=== PATIENT | male | born 1990 | race Caucasian/White ===

== ENCOUNTER 2016-04-10 10:01 | Inpatient (IN) | payer BC ==
[2016-04-10] MEDS ORDERED: ONDANSETRON 4 MG/2 ML VIAL IVP STA (10:24)
[2016-04-10] MEDS ORDERED: SODIUM CHLORIDE 0.9% 1,000 ML IV STA (10:24)
--- NOTE | 2016-04-10 10:45 | ED ---
Nausea/Vomiting/Diarrhea HPI - General Chief complaint: Nausea/Vomiting/Diarrhea Stated complaint: MUSCLE CRAMPS - VOMITING Time Seen by Provider: 04/10/16 10:24 Source: patient, family, RN notes reviewed Mode of arrival: wheelchair Limitations: no limitations - History of Present Illness Initial comments: 25-year-old male presents emergency Department chief complaint nausea vomiting muscle cramps. Patient states started last night and which she started getting abdominal pain and then he states that he started vomiting. Patient states that he has a colostomy secondary to ulcerative colitis. Patient states his GI doctor is Dr. Maynard and has a surgeon out of [facility]. Patient states he is supposed to go for [facility]. Patient states that he's been going there and they found out he had histoplasmosis and was treated for this. Patient states that he is having straight water in his colostomy bag and there is some blood-tinged areas. Patient denies fever, chills. Patient denies any difficulty urinating, dysuria or hematuria. Denies any back pain. Patient states she's having severe cramping of his lower extremities. - Related Data Home Medications Medication Instructions Recorded Confirmed Ibuprofen [Advil] 400 mg PO Q8HR PRN 04/10/16 04/10/16 Allergies Allergy/AdvReac Type Severity Reaction Status Date / Time oxycodone Allergy Unknown Verified 04/10/16 10:33 Penicillins Allergy Unknown Verified 04/10/16 10:32 Childhood Review of Systems ROS Statement: Those systems with pertinent positive or pertinent negative responses have been documented in the HPI. ROS Other: All systems not noted in ROS Statement are negative. Past Medical History Additional Past Medical History / Comment(s): LACTOSE INTOLERANT,ULCERATIVE COLITIS History of Any Multi-Drug Resistant Organisms: None Reported Past Surgical History: Adenoidectomy, Tonsillectomy Additional Past Surgical History / Comment(s): CYST REMOVED FROM TAIL BONE Past Anesthesia/Blood Transfusion Reactions: No Reported Reaction Past Psychological History: No Psychological Hx Reported Smoking Status: Never smoker Past Alcohol Use History: None Reported Past Drug Use History: None Reported General Exam Limitations: no limitations General appearance: alert, in no apparent distress Head exam: Present: atraumatic, normocephalic, normal inspection ENT exam: Present: mucous membranes moist Neck exam: Present: normal inspection, full ROM. Absent: tenderness, meningismus, lymphadenopathy Respiratory exam: Present: normal lung sounds bilaterally. Absent: respiratory distress, wheezes, rales, rhonchi, stridor Cardiovascular Exam: Present: regular rate (Regular rate on exam he was tachycardic during triage when he was vomiting), normal rhythm, normal heart sounds. Absent: systolic murmur, diastolic murmur, rubs, gallop, clicks GI/Abdominal exam: Present: soft, tenderness (Mild diffuse), normal bowel sounds , other (Colostomy noted the right lower). Absent: distended, guarding, rebound , rigid Back exam: Absent: CVA tenderness (R), CVA tenderness (L) Neurological exam: Present: alert, oriented X3, CN II-XII intact Skin exam: Present: warm, dry, intact, normal color. Absent: rash Course Vital Signs 04/10/16 04/10/16 10:17 10:51 Temperature 97.4 F L Pulse Rate 142 H 102 H Respiratory 18 17 Rate Blood Pressure 118/72 O2 Sat by Pulse 100 Oximetry Medical Decision Making - Lab Data Result diagrams: 04/10/16 10:33 04/10/16 10:33 Lab Results 04/10/16 04/10/16 04/10/16 Range/Units 10:33 10:33 12:11 WBC 20.3 H (3.8-10.6) k/uL RBC 5.88 (4.30-5.90) m/uL Hgb 17.6 H (13.0-17.5) gm/dL Hct 51.6 (39.0-53.0) % MCV 87.8 (80.0-100.0) fL MCH 29.8 (25.0-35.0) pg MCHC 34.0 (31.0-37.0) g/dL RDW 12.0 (11.5-15.5) % Plt Count 389 (150-450) k/uL Neutrophils % 88 % Lymphocytes % 4 % Monocytes % 5 % Eosinophils % 1 % Basophils % 0 % Neutrophils # 17.9 H (1.3-7.7) k/uL Lymphocytes # 0.9 L (1.0-4.8) k/uL Monocytes # 1.1 H (0-1.0) k/uL Eosinophils # 0.2 (0-0.7) k/uL Basophils # 0.1 (0-0.2) k/uL Sodium 142 (137-145) mmol/L Potassium 4.6 (3.5-5.1) mmol/L Chloride 98 (98-107) mmol/L Carbon Dioxide 27 (22-30) mmol/L Anion Gap 17 mmol/L BUN 22 H (9-20) mg/dL Creatinine 0.94 (0.66-1.25) mg/dL Est GFR (MDRD) Af Amer >60 (>60 ml/min/1.73 sqM) Est GFR (MDRD) Non-Af >60 (>60 ml/min/1.73 sqM) Glucose 129 H (74-99) mg/dL Calcium 10.4 H (8.4-10.2) mg/dL Magnesium 1.7 (1.6-2.3) mg/dL Total Bilirubin 1.0 (0.2-1.3) mg/dL AST 26 (17-59) U/L ALT 32 (21-72) U/L Alkaline Phosphatase 97 (38-126) U/L Total Protein 8.8 H (6.3-8.2) g/dL Albumin 5.1 H (3.5-5.0) g/dL Amylase 51 (30-110) U/L Lipase 56 (23-300) U/L Urine Color Dark Brown Urine Appearance Cloudy (Clear) Urine pH 7.0 (5.0-8.0) Ur Specific [place] 1.022 (1.001-1.035) Urine Protein 1+ H (Negative) Urine Glucose (UA) Negative (Negative) Urine Ketones Trace H (Negative) Urine Blood Negative (Negative) Urine Nitrate Negative (Negative) Urine Bilirubin Negative (Negative) Urine Urobilinogen <2.0 (<2.0) mg/dL Ur Leukocyte Esterase Trace H (Negative) Urine RBC 2 (0-5) /hpf Urine WBC 6 H (0-5) /hpf Urine Bacteria Rare H (None) /hpf Urine Mucus Many H (None) /hpf Stool Occult Blood (Negative) 04/10/16 Range/Units 12:38 WBC (3.8-10.6) k/uL RBC (4.30-5.90) m/uL Hgb (13.0-17.5) gm/dL Hct (39.0-53.0) % MCV (80.0-100.0) fL MCH (25.0-35.0) pg MCHC (31.0-37.0) g/dL RDW (11.5-15.5) % Plt Count (150-450) k/uL Neutrophils % % Lymphocytes % % Monocytes % % Eosinophils % % Basophils % % Neutrophils # (1.3-7.7) k/uL Lymphocytes # (1.0-4.8) k/uL Monocytes # (0-1.0) k/uL Eosinophils # (0-0.7) k/uL Basophils # (0-0.2) k/uL Sodium (137-145) mmol/L Potassium (3.5-5.1) mmol/L Chloride (98-107) mmol/L Carbon Dioxide (22-30) mmol/L Anion Gap mmol/L BUN (9-20) mg/dL Creatinine (0.66-1.25) mg/dL Est GFR (MDRD) Af Amer (>60 ml/min/1.73 sqM) Est GFR (MDRD) Non-Af (>60 ml/min/1.73 sqM) Glucose (74-99) mg/dL Calcium (8.4-10.2) mg/dL Magnesium (1.6-2.3) mg/dL Total Bilirubin (0.2-1.3) mg/dL AST (17-59) U/L ALT (21-72) U/L Alkaline Phosphatase (38-126) U/L Total Protein (6.3-8.2) g/dL Albumin (3.5-5.0) g/dL Amylase (30-110) U/L Lipase (23-300) U/L Urine Color Urine Appearance (Clear) Urine pH (5.0-8.0) Ur Specific [place] (1.001-1.035) Urine Protein (Negative) Urine Glucose (UA) (Negative) Urine Ketones (Negative) Urine Blood (Negative) Urine Nitrate (Negative) Urine Bilirubin (Negative) Urine Urobilinogen (<2.0) mg/dL Ur Leukocyte Esterase (Negative) Urine RBC (0-5) /hpf Urine WBC (0-5) /hpf Urine Bacteria (None) /hpf Urine Mucus (None) /hpf Stool Occult Blood Positive (Negative) Disposition Clinical Impression: Dehydration, Diarrhea, Muscle cramps, Vomiting, Ulcerative colitis, Status post colostomy Disposition: ADMITTED IP TO THIS HOSP Condition: Stable
[2016-04-10 11:03] LABS: Basophils # (A) 0.1 k/uL (0-0.2); Basophils % (A) 0 %; CH 30.8; CHCM 35.2; Eosinophils # (A) 0.2 k/uL (0-0.7); Eosinophils % (A) 1 %; HCT 51.6 % (39.0-53.0); HDW 2.75; HGB 17.6 gm/dL (13.0-17.5); Luc # (Auto) 0.19; Luc % (Auto) 1; Lymphocytes # (A) 0.9 k/uL (1.0-4.8); Lymphocytes % (A) 4 %; MCH 29.8 pg (25.0-35.0); MCV 87.8 fL (80.0-100.0); Mean Platelet Volume 6.7; Monocytes # (A) 1.1 k/uL (0-1.0); Monocytes % (A) 5 %; Neutrophils # (A) 17.9 k/uL (1.3-7.7); Neutrophils % (A) 88 %; RBC 5.88 m/uL (4.30-5.90); WBC 20.3 k/uL (3.8-10.6); WBC (Perox) 20.72
[2016-04-10 11:14] LABS: ALT 32 U/L (21-72); AST 26 U/L (17-59); Alkaline Phosphatase 97 U/L (38-126); Amylase 51 U/L (30-110); Anion Gap 17 mmol/L; Blood Urea Nitrogen 22 mg/dL (9-20); Calcium 10.4 mg/dL (8.4-10.2); Carbon Dioxide 27 mmol/L (22-30); Chloride 98 mmol/L (98-107); Glucose 129 mg/dL (74-99); Magnesium 1.7 mg/dL (1.6-2.3); Non-African American GFR(MDRD) >60 (>60 ml/min/1.73 sqM); Potassium 4.6 mmol/L (3.5-5.1); Sodium 142 mmol/L (137-145); Total Protein 8.8 g/dL (6.3-8.2)
--- NOTE | 2016-04-10 11:17 | XR ---
EXAMINATION TYPE: XR KUB DATE OF EXAM ORDERED: 04/10/2016 11:10 AM HISTORY: Nausea and sharp abdominal pain. COMPARISON: None. FINDINGS: An ostomy projects over the right lower quadrant. The abdominal gas pattern is normal. There is no evidence of obstruction or free air. There are sever al phleboliths in the left hemipelvis. IMPRESSION: 1. STATUS POST OSTOMY. 2. NO ACUTE INTRA-ABDOMINAL ABNORMALITY.
[2016-04-10] MEDS ORDERED: RX INFO: IV CONTRAST WAS GIVEN 1 EACH MISC MISCELLANE PRN (11:30)
[2016-04-10 12:27] LABS: Appearance,Urine Cloudy (Clear); Bacteria,Urine Rare /hpf; Bilirubin,Urine Negative (Negative); Glucose,Urine (UA) Negative (Negative); Ketones,Urine Trace (Negative); Leukocyte Esterase,Urine Trace (Negative); Mucus,Urine Many /hpf; Nitrite,Urine Negative (Negative); Particle Count 15989; Protein,Urine 1+ (Negative); RBC,Urine 2 /hpf (0-5); Specific Gravity,Urine 1.022 (1.001-1.035); UA Billing (MACRO vs. MICRO) MICRO; Urobilinogen,Urine <2.0 mg/dL (<2.0); WBC,Urine 6 /hpf (0-5)
--- NOTE | 2016-04-10 12:34 | CT ---
EXAMINATION TYPE: CT abdomen pelvis w con DATE OF EXAM: 04/10/2016 12:17 PM REFERENCE: Previous study dated 11/20/2014. HISTORY: Pain HISTORY: Nausea and vomiting and diarrhea. The patient has a history of ulcerative colitis. CT DLP: 344.20 mGy Automated exposure control for dose reduction was used. TECHNIQUE: Helical acquisition through the abdomen and pelvis was obtained without oral contrast and following intravenous administration of 100 mL of Omnipaque 300. The data was reformatted in axial, c oronal and sagittal projections. Delayed images were also obtained. FINDINGS: Visualized portions of the lungs are clear. There is no pleural or pericardial fluid. Within the abdomen, there are 3, stable hypoechoic densities within the posterior segment of the righ t lobe of the liver these are slightly more apparent on today's examination but have not increased in size. These do not fill in completely following delayed imaging. The gallbladder is unremarkable. The spleen is not enlarged on today's examination measuring 12.5 cm. Both adrenal glands are normal. Both kidneys demonstrate function and appear morphologically normal. The pancreas is unremarkable. Since the previous study in ostomy is been performed in the right mid abdomen. There is no significant retroperitoneal, iliac or inguinal adenopathy. There appears to been a subtot al colectomy. There is some mesenteric adenopathy. No pathologically enlarged lymph nodes are seen. The bladder is not distended. Small bowel loops are unremarkable. No free fluid and no free air is seen. IMPRESSION: 1. STATUS POST SUBTOTAL COLECTOMY. 2. STABLE HEPATIC LESIONS WITHIN THE RIGHT LOBE OF THE LIVER. THESE DO NOT HAVE THE APPEARANCE OF CYS TS. THESE MAY REPRESENT ATYPICAL HEMANGIOMAS. THIS WAS THE FEELING ON A RECENT MR OF THE ABDOMEN. 3. NONSPECIFIC MESENTERIC ADENOPATHY. 4. NO DEFINITE SPLENOMEGALY AT THIS TIME.
[2016-04-10] MEDS ORDERED: KETOROLAC 30 MG/ML 1 ML VIAL IVP STA (12:40)
[2016-04-10] MEDS ORDERED: NALOXONE 0.4 MG/ML 1 ML VIAL IV PRN (13:03)
[2016-04-10] MEDS: SODIUM CHLORIDE 0.9% 1,000 ML IV SCH (13:27)
[2016-04-10] MEDS: ACETAMINOPHEN TAB 325 MG TAB PO PRN ×2 (14:27→23:30)
[2016-04-10] MEDS: ONDANSETRON 4 MG/2 ML VIAL IVP PRN (19:09)
[2016-04-10] MEDS: MORPHINE SULFATE 2 MG/ML SYRINGE IVP PRN (19:34)
--- NOTE | 2016-04-10 22:30 | HP ---
DATE OF ADMISSION: 04/10/2016 CHIEF COMPLAINT: Nausea, vomiting and diarrhea. HISTORY OF PRESENT ILLNESS: Mr. Morales is a 25-year-old male with known history of ulcerative colitis, status post colectomy and colostomy bag placement at the [facility] and follow with Dr. Beck as an outpatient, came to the hospital with complaints of intractable nausea, vomiting and muscle cramps along with ( ) fluid in the colostomy bag for the past one day. Patient is supposed to follow with the surgeon at [facility] for ( ) placement. Otherwise, patient does have history of histoplasmosis and was treated for one year after colostomy bag placement. The last time he followed with the surgery in February 2016. Patient denied any complaints of fever, but does have some sweating. Otherwise, denied unusual food intake. Denied any sick contacts at home. The patient says that he is having watery diarrhea greenish color and sometimes blood tinged. Denied any dysuria or hematuria. Denies any chest pain or short of breath. Denied any other complaints. The patient does have severe cramping of the bilateral lower extremities. REVIEW OF SYSTEMS: CONSTITUTIONAL: No fever. No chills. No weakness or malaise. RESPIRATORY: No cough or sputum production. CARDIOVASCULAR: No chest pain or short of breath. ABDOMEN: Patient does have nausea and vomiting and diarrhea. No dysuria. No hematuria. ENDOCRINE: Negative. PSYCHIATRIC: Negative. SKIN: Negative. MUSCULOSKELETAL: Negative. All other fourteen-point review of systems negative except as above. PAST MEDICAL HISTORY: 1. Ulcerative colitis. 2. Lactose intolerance. 3. History of histoplasmosis. PAST SURGICAL HISTORY: Adenoidectomy, tonsillectomy, colectomy and cyst removed from [facility]. SOCIAL HISTORY: Patient never a smoker. Denied any alcohol, denied any drugs or IVDU. FAMILY HISTORY: Denied any history of hypertension, diabetes mellitus, ( ) and evidence of ( ) . No history of ulcerative colitis in the family. ALLERGIES: OXYCODONE, PENICILLIN. Home medications ibuprofen. PHYSICAL EXAMINATION: 25-year-old male lying in the bed, awake, alert and oriented x3 appears to be in no apparent distress. VITALS: Blood pressure is 108/72, pulse is 102, respiration 18, temperature afebrile, T-max is 99.8, pulse ox is saturating well on room air. HEENT: Atraumatic, normocephalic. Neck is supple. No JVD. CVS: S1, S2 heard. No murmurs or gallop. LUNGS: Bilateral air entry is present. No wheezing. No crackles. ABDOMEN: Soft, mild tenderness. No guarding or rigidity. Colostomy bag intact with greenish fluid in it. NEEDLE LOOM OPERATOR HELPER: Awake, alert, oriented, x3. No focal neurologic deficits. Cranial nerves grossly intact. EXTREMITIES: No edema. Pulses palpable bilaterally. No clubbing or cyanosis. PSYCHIATRIC: Cooperative. LABORATORY DATA: WBC 20.3, hemoglobin 17.6, platelets 389. Sodium 142, potassium 4.6, chloride 98, bicarb is 27. BUN 22, creatinine 0.94, calcium 10.4, albumin 5.1, amylase and lipase not elevated. UA negative for infection. FOBT positive. Clostridium difficile toxin is pending at this time. ASSESSMENT AND PLAN: 1. Acute gastroenteritis with intractable nausea, vomiting and diarrhea. 2. Significant leukocytosis. 3. History of ulcerative colitis status post colectomy and a colostomy bag placement at the [facility]. 4. Dehydration. 5. History of histoplasmosis, status post treatment for one year. DISCUSSION AND PLAN: 25 -year-old male admitted to hospital with intractable nausea, vomiting and diarrhea. We will continue with symptomatic management at this time. Continue with Zofran p.r.n. for nausea, vomiting and continue with IV fluids and continue PPI and continue the pain management. GI has been consulted for further evaluation. We will get a C. dif toxin. ( ) and follow up on stool culture and stool for ova parasites. Further recommendations based on clinical course.
[2016-04-11] MEDS: SODIUM CHLORIDE 0.9% 1,000 ML IV SCH ×5 (00:26→23:46)
[2016-04-11] MEDS: MORPHINE SULFATE 2 MG/ML SYRINGE IVP PRN ×2 (00:50→12:54)
[2016-04-11] MEDS: ONDANSETRON 4 MG/2 ML VIAL IVP PRN ×2 (03:18→12:59)
[2016-04-11] MEDS: ACETAMINOPHEN TAB 325 MG TAB PO PRN ×3 (05:57→21:08)
[2016-04-11 07:29] LABS: Basophils # (A) 0.1 k/uL (0-0.2); Basophils % (A) 1 %; CH 30.7; CHCM 34.8; Eosinophils % (A) 0 %; HCT 45.3 % (39.0-53.0); HDW 2.68; HGB 15.4 gm/dL (13.0-17.5); Luc # (Auto) 0.13; Luc % (Auto) 1; Lymphocytes # (A) 1.2 k/uL (1.0-4.8); Lymphocytes % (A) 10 %; MCH 30.3 pg (25.0-35.0); MCHC 34.1 g/dL (31.0-37.0); MCV 88.8 fL (80.0-100.0); Mean Platelet Volume 7.4; Monocytes # (A) 1.1 k/uL (0-1.0); Monocytes % (A) 9 %; Neutrophils # (A) 10.1 k/uL (1.3-7.7); Neutrophils % (A) 80 %; WBC 12.6 k/uL (3.8-10.6); WBC (Perox) 13.02
[2016-04-11 08:03] LABS: Anion Gap 15 mmol/L; Blood Urea Nitrogen 23 mg/dL (9-20); Calcium 9.2 mg/dL (8.4-10.2); Carbon Dioxide 24 mmol/L (22-30); Chloride 97 mmol/L (98-107); Glucose 107 mg/dL (74-99); Non-African American GFR(MDRD) >60 (>60 ml/min/1.73 sqM); Potassium 4.5 mmol/L (3.5-5.1); Sodium 136 mmol/L (137-145)
[2016-04-11] MEDS: PANTOPRAZOLE 40 MG/10 ML VIAL IV SCH (08:53)
[2016-04-12] MEDS: PANTOPRAZOLE 40 MG/10 ML VIAL IV SCH (08:55)
[2016-04-12 14:51] VITALS: BP 112/65; PULSE 60; RESP 17; TEMP 98.4
--- NOTE | 2016-05-07 06:39 | PN ---
DATE OF SERVICE: 04/11/2016 INTERVAL HISTORY: Mr. Morales is a 25-year-old male with a known history of ulcerative colitis, status post colectomy and colostomy bag placement at the [facility] and follows with Dr. Beck as an outpatient, came to the hospital with complaints of nausea, vomiting, abdominal pain and cramps, a profuse amount of stool in the colostomy bag one day prior to admission. Patient is currently ( ) symptomatically. Continued on IV fluids. Nausea and vomiting improved now. The patient is still having stools in the colostomy bag. C. difficile toxin is negative. Leukocytosis is also improved. Otherwise, the patient is improving symptomatically. Will continue the current management. Anticipate discharge in the next 24 hours. REVIEW OF SYSTEMS: CONSTITUTIONAL: No fever. No chills. No weakness, malaise. RESPIRATORY: No cough or sputum production. CARDIOVASCULAR: No chest pain or short of breath. No leg swelling. ABDOMEN: No nausea or vomiting. Patient does have diarrhea. GENITOURINARY: No dysuria, no hematuria. ENDOCRINE: Negative. PSYCHIATRIC: Negative. SKIN: Negative. MUSCULOSKELETAL: Negative. All other 14-point review of system negative except the above. CURRENT MEDICATIONS: Reviewed. PHYSICAL EXAMINATION: A 25-year-old male lying in bed comfortably. Awake, alert and oriented x3. Appears to be in no apparent distress. VITALS: Blood pressure is 124/70. Pulse is 79, respirations 16, temperature afebrile, pulse ox 95% on 2 L nasal cannula. HEENT: Atraumatic, normocephalic. Neck is supple. No JVD. CVS EXAM: S1, S2 heard. No murmurs, no gallop, no rub. LUNGS: Bilateral air entry is present. No wheezing, no crackles. ABDOMEN: Soft, nontender. Bowel sounds are present. Greenish liquid in the colostomy bag. No guarding or rigidity. METERS SUPERINTENDENT: Awake, alert, oriented x3. No focal deficit. EXTREMITIES: No edema. Pulses palpable bilaterally. No clubbing or cyanosis. PSYCHIATRIC: Cooperative. LABORATORY DATA: WBC 12.6, hemoglobin 15.4, platelets 292. Sodium 136, potassium 4.5, chloride 97, bicarb 24. BUN 23 and creatinine 1.08. Calcium 9.2. IMPRESSION: 1. Acute gastroenteritis. Diarrhea is improving now. Clostridium difficile toxin is negative. 2. Intractable nausea, vomiting and crampy abdominal pain, improved. 3. Significant leukocytosis, resolved. 4. History of ulcerative colitis, status post colectomy and colostomy bag placement at [facility]. 5. Dehydration, improved. 6. History of histoplasmosis, status post treatment for one year. DISCUSSION AND PLAN: Patient will be continued on IV fluids and started on clear liquids and advance as tolerated. Follow up on the final stool cultures and continue the current management. Further recommendations based on the clinical course.
--- NOTE | 2016-05-07 21:10 | DS ---
DATE OF ADMISSION: 04/10/2016 DATE OF DISCHARGE: 04/12/2016 DISCHARGE DIAGNOSIS: 1. Acute gastroenteritis with intractable nausea, vomiting and diarrhea, improved now. Clostridium difficile toxin negative. 2. Significant leukocytosis, most likely reactive, near normalized now. 3. History of ulcerative colitis, status post colectomy and colostomy bag placement at [facility]. 4. Dehydration, improved. 5. History of histoplasmosis, status post treatment for 1 year and then follow with the surgery clinic. HOSPITAL COURSE: Mr. Morales is a 75-year-old male who was admitted to the hospital with significant history of ulcerative colitis and colostomy bag, admitted to the hospital with intractable nausea, vomiting and muscle cramps along with a profuse amount of fluid in the colostomy bag for the past 1 day prior to admission. Patient follows with a surgeon at the [facility]. Otherwise, patient was found to be very dehydrated and was symptomatically managed for nausea, vomiting and hydrated well and patient did improve symptomatically. Patient was started on diet and clear liquids and advanced as tolerated. Currently tolerating p.o. diet and patient will be discharged home. C. diff. toxin is negative. Will follow up on the final culture reports. Otherwise, patient is stable to be discharged home. DISCHARGE PHYSICAL EXAMINATION: A 25-year-old male, lying in the bed; awake, alert, oriented, x3. He appears to be in no apparent distress. VITALS: Blood pressure is 112/65, pulse is 60, respiratory rate 17, temperature afebrile, pulse ox 98% on room air. LABORATORY DATA: Reviewed. Discharge physical examination done. Discharge medications include ibuprofen 400 mg p.o. q.8 hourly p.r.n. for pain. Follow up with Dr. Kia Romano 1-2 days. Discharged home with self-care. [facility]
== END 2016-04-12 16:57 | disposition home or self-care (01) | DRG 392 ==
LOC: EC 10:01 → 3SUR 13:03
PROVIDERS: ADMIT Internal Medicine; ATTEND Internal Medicine
DX: K52.9 Noninfective gastroenteritis and colitis, unspecified (principal); K51.90 Ulcerative colitis, unspecified, without complications; E73.9 Lactose intolerance, unspecified; E86.0 Dehydration; Z93.3 Colostomy status; Z88.5 Allergy status to narcotic agent; Z88.0 Allergy status to penicillin
CPT/HCPCS: 36415; 74000; 74177; 80048; 80053; 80299; 81001; 82150; 82272; 83690; 83735; 85025; 87045; 87046; 87324; 89055; 96374; 96375; 96376; 99285

== ENCOUNTER 2016-11-29 18:45 | Emergency (ER) | payer BC ==
[2016-11-29] MEDS ORDERED: RX INFO: IV CONTRAST WAS GIVEN 1 EACH MISC MISCELLANE PRN (19:02)
[2016-11-29] MEDS ORDERED: SODIUM CHLORIDE 0.9% 2,000 ML IV STA (19:02)
[2016-11-29] MEDS ORDERED: ONDANSETRON 4 MG/2 ML VIAL IVP STA (19:02)
[2016-11-29] MEDS ORDERED: ACETAMINOPHEN IV (For NPO) 1,000 MG in EMPTY BAG 1 BAG IVPB STA (19:06)
--- NOTE | 2016-11-29 19:18 | ED ---
Abdominal Pain HPI - General Chief Complaint: Abdominal Pain Stated Complaint: flu symptoms Time Seen by Provider: 11/29/16 18:57 Source: patient, RN notes reviewed Mode of arrival: ambulatory Limitations: no limitations - History of Present Illness Initial Comments: This a 26-year-old male presents emergency Department with chief complaint of abdominal pain, nausea vomiting diarrhea. Patient has a history of ulcerative colitis with bowel resection and J-pouch. Patient had reversal [address] Aquino. Patient states this was performed at [facility]. Patient states that he developed primarily diarrhea 4 days ago was seen at [facility] told that he had a viral illness. Patient states symptoms are worsening along with the fever. Patient currently has a temp of 102.3. Patient has not taken Tylenol Motrin. Patient states that his stools very loose and abnormal color at this time. Patient has not taken any recent antibiotics. Patient does admit to nausea and vomiting started last 24 hours. He denies any dysuria or hematuria. Patient states he feels very dehydrated in which she's had dehydration in the past. Patient denies any cough or cold- like symptoms. - Related Data Home Medications Medication Instructions Recorded Confirmed No Known Home Medications [No 11/29/16 11/29/16 Known Home Medications] Allergies Allergy/AdvReac Type Severity Reaction Status Date / Time oxycodone Allergy Unknown Verified 11/29/16 19:31 Penicillins Allergy Unknown Verified 11/29/16 19:31 Childhood lactose AdvReac Nausea & Verified 11/29/16 19:31 Vomiting & Diarrhea Review of Systems ROS Statement: Those systems with pertinent positive or pertinent negative responses have been documented in the HPI. ROS Other: All systems not noted in ROS Statement are negative. Past Medical History Additional Past Medical History / Comment(s): LACTOSE INTOLERANT,ULCERATIVE COLITIS-large bowel removed/colostomy, J pouch histoplasmosis, sinus issues. History of Any Multi-Drug Resistant Organisms: None Reported Past Surgical History: Adenoidectomy, Bowel Resection, Tonsillectomy Additional Past Surgical History / Comment(s): 02/08/15 bowel resection (large bowel removed) and colostomy placed, J pouch, multiple colonoscopies, CYSTS REMOVED FROM TAIL BONE Past Anesthesia/Blood Transfusion Reactions: No Reported Reaction Past Psychological History: Anxiety, Depression Smoking Status: Never smoker Past Alcohol Use History: Rare Past Drug Use History: None Reported - Past Family History Father Family Medical History: Cancer Additional Family Medical History / Comment(s): Father has prostate cancer. Mother Family Medical History: No Reported History General Exam Limitations: no limitations General appearance: alert, in no apparent distress Neck exam: Present: normal inspection, full ROM. Absent: tenderness, meningismus, lymphadenopathy Respiratory exam: Present: normal lung sounds bilaterally. Absent: respiratory distress, wheezes, rales, rhonchi, stridor Cardiovascular Exam: Present: normal rhythm, tachycardia, normal heart sounds. Absent: systolic murmur, diastolic murmur, rubs, gallop, clicks GI/Abdominal exam: Present: soft, tenderness (Mild right-sided and left-sided abdominal tenderness), normal bowel sounds, other (Old healed surgical scars noted). Absent: distended, guarding, rebound, rigid Back exam: Absent: CVA tenderness (R), CVA tenderness (L) Skin exam: Present: warm, dry, intact, normal color. Absent: rash Course Vital Signs 11/29/16 11/29/16 11/29/16 18:52 19:25 19:53 Temperature 102.3 F H Pulse Rate 138 H 69 111 H Respiratory 20 16 18 Rate Blood Pressure 109/68 119/73 123/72 O2 Sat by Pulse 97 97 95 Oximetry 11/29/16 20:30 Temperature 102.9 F H Pulse Rate 109 H Respiratory 18 Rate Blood Pressure 123/68 O2 Sat by Pulse 96 Oximetry Medical Decision Making - Medical Decision Making 26-year-old male presented for abdominal pain nausea vomiting diarrhea fever. had reversal of his colostomy approximately [address] Hopkins at the [facility]. Patient's CT shows possible leaking of his anastomosis. Patient is given Levaquin and Flagyl at this time as he has an ALLERGY to penicillin products. Patient will be transferred to [facility] for evaluation by his surgeon. I discussed the case with Dr. Phillips at [facility] who accepts transfer. - Lab Data Result diagrams: 11/29/16 19:40 11/29/16 19:40 Lab Results 11/29/16 11/29/16 11/29/16 Range/Units 19:40 19:40 19:40 WBC 11.5 H (3.8-10.6) k/uL RBC 5.07 (4.30-5.90) m/uL Hgb 14.9 (13.0-17.5) gm/dL Hct 44.1 (39.0-53.0) % MCV 87.0 (80.0-100.0) fL MCH 29.4 (25.0-35.0) pg MCHC 33.8 (31.0-37.0) g/dL RDW 12.8 (11.5-15.5) % Plt Count 332 (150-450) k/uL Neutrophils % 80 % Lymphocytes % 8 % Monocytes % 7 % Eosinophils % 1 % Basophils % 1 % Neutrophils # 9.2 H (1.3-7.7) k/uL Lymphocytes # 1.0 (1.0-4.8) k/uL Monocytes # 0.9 (0-1.0) k/uL Eosinophils # 0.1 (0-0.7) k/uL Basophils # 0.1 (0-0.2) k/uL Sodium 134 L (137-145) mmol/L Potassium 4.2 (3.5-5.1) mmol/L Chloride 94 L (98-107) mmol/L Carbon Dioxide 26 (22-30) mmol/L Anion Gap 14 mmol/L BUN 24 H (9-20) mg/dL Creatinine 0.90 (0.66-1.25) mg/dL Est GFR (MDRD) Af Amer >60 (>60 ml/min/1.73 sqM) Est GFR (MDRD) Non-Af >60 (>60 ml/min/1.73 sqM) Glucose 97 (74-99) mg/dL Plasma Lactic Acid [place] 1.6 (0.7-2.0) mmol/L Calcium 9.5 (8.4-10.2) mg/dL Total Bilirubin 0.5 (0.2-1.3) mg/dL AST 24 (17-59) U/L ALT 48 (21-72) U/L Alkaline Phosphatase 69 (38-126) U/L Total Protein 7.7 (6.3-8.2) g/dL Albumin 4.4 (3.5-5.0) g/dL Amylase 32 (30-110) U/L Lipase 24 (23-300) U/L Urine Color Urine Appearance (Clear) Urine pH (5.0-8.0) Ur Specific [place] (1.001-1.035) Urine Protein (Negative) Urine Glucose (UA) (Negative) Urine Ketones (Negative) Urine Blood (Negative) Urine Nitrite (Negative) Urine Bilirubin (Negative) Urine Urobilinogen (<2.0) mg/dL Ur Leukocyte Esterase (Negative) Urine RBC (0-5) /hpf Urine WBC (0-5) /hpf Cellular Casts (0) /lpf Hyaline Casts (0-2) /lpf Granular Casts (0) /lpf Urine Mucus (None) /hpf C. difficile (EIA) Intrp (Negative) 11/29/16 11/29/16 Range/Units 19:48 19:48 WBC (3.8-10.6) k/uL RBC (4.30-5.90) m/uL Hgb (13.0-17.5) gm/dL Hct (39.0-53.0) % MCV (80.0-100.0) fL MCH (25.0-35.0) pg MCHC (31.0-37.0) g/dL RDW (11.5-15.5) % Plt Count (150-450) k/uL Neutrophils % % Lymphocytes % % Monocytes % % Eosinophils % % Basophils % % Neutrophils # (1.3-7.7) k/uL Lymphocytes # (1.0-4.8) k/uL Monocytes # (0-1.0) k/uL Eosinophils # (0-0.7) k/uL Basophils # (0-0.2) k/uL Sodium (137-145) mmol/L Potassium (3.5-5.1) mmol/L Chloride (98-107) mmol/L Carbon Dioxide (22-30) mmol/L Anion Gap mmol/L BUN (9-20) mg/dL Creatinine (0.66-1.25) mg/dL Est GFR (MDRD) Af Amer (>60 ml/min/1.73 sqM) Est GFR (MDRD) Non-Af (>60 ml/min/1.73 sqM) Glucose (74-99) mg/dL Plasma Lactic Acid [place] (0.7-2.0) mmol/L Calcium (8.4-10.2) mg/dL Total Bilirubin (0.2-1.3) mg/dL AST (17-59) U/L ALT (21-72) U/L Alkaline Phosphatase (38-126) U/L Total Protein (6.3-8.2) g/dL Albumin (3.5-5.0) g/dL Amylase (30-110) U/L Lipase (23-300) U/L Urine Color Yellow Urine Appearance Clear (Clear) Urine pH 6.5 (5.0-8.0) Ur Specific [place] 1.030 (1.001-1.035) Urine Protein 1+ H (Negative) Urine Glucose (UA) Negative (Negative) Urine Ketones 1+ H (Negative) Urine Blood Small H (Negative) Urine Nitrite Negative (Negative) Urine Bilirubin 1+ H (Negative) Urine Urobilinogen 2.0 (<2.0) mg/dL Ur Leukocyte Esterase Negative (Negative) Urine RBC 6 H (0-5) /hpf Urine WBC 10 H (0-5) /hpf Cellular Casts 21 (0) /lpf Hyaline Casts 16 H (0-2) /lpf Granular Casts 21 (0) /lpf Urine Mucus Many H (None) /hpf C. difficile (EIA) Intrp Negative (Negative) Disposition Clinical Impression: Colitis, Leak of anastomosis between gastrointestinal structures Disposition: OTHER INSTITUTION NOT DEFINED Condition: Stable Referrals: Kia Rmoano MD [Primary Care Provider] - 1-2 days Time of Disposition: 21:15 - Out of Hospital Transfer - Req. Specs Out of Hospital Transfer - Requested Specifics: Other Emergency Center ( [facility])
[2016-11-29 19:51] LABS: Basophils # (A) 0.1 k/uL (0-0.2); Basophils % (A) 1 %; CH 31.2; Eosinophils # (A) 0.1 k/uL (0-0.7); Eosinophils % (A) 1 %; HCT 44.1 % (39.0-53.0); HDW 2.73; HGB 14.9 gm/dL (13.0-17.5); Luc # (Auto) 0.33; Luc % (Auto) 3; Lymphocytes % (A) 8 %; MCH 29.4 pg (25.0-35.0); MCHC 33.8 g/dL (31.0-37.0); Mean Platelet Volume 7.6; Monocytes # (A) 0.9 k/uL (0-1.0); Monocytes % (A) 7 %; Neutrophils # (A) 9.2 k/uL (1.3-7.7); Neutrophils % (A) 80 %; RBC 5.07 m/uL (4.30-5.90); RDW 12.8 % (11.5-15.5); WBC 11.5 k/uL (3.8-10.6)
[2016-11-29 20:02] LABS: ALT 48 U/L (21-72); AST 24 U/L (17-59); Alkaline Phosphatase 69 U/L (38-126); Amylase 32 U/L (30-110); Anion Gap 14 mmol/L; Blood Urea Nitrogen 24 mg/dL (9-20); Calcium 9.5 mg/dL (8.4-10.2); Carbon Dioxide 26 mmol/L (22-30); Chloride 94 mmol/L (98-107); Glucose 97 mg/dL (74-99); Non-African American GFR(MDRD) >60 (>60 ml/min/1.73 sqM); Potassium 4.2 mmol/L (3.5-5.1); Sodium 134 mmol/L (137-145); Total Bilirubin 0.5 mg/dL (0.2-1.3); Total Protein 7.7 g/dL (6.3-8.2)
[2016-11-29 20:06] LABS: Appearance,Urine Clear (Clear); Bilirubin,Urine 1+ (Negative); Glucose,Urine (UA) Negative (Negative); Granular Casts,Urine 21 /lpf (0); Ketones,Urine 1+ (Negative); Leukocyte Esterase,Urine Negative (Negative); Mucus,Urine Many /hpf; Nitrite,Urine Negative (Negative); PH, Urine 6.5 (5.0-8.0); Particle Count 12418; Protein,Urine 1+ (Negative); RBC,Urine 6 /hpf (0-5); UA Billing (MACRO vs. MICRO) MICRO; WBC,Urine 10 /hpf (0-5)
[2016-11-29] MEDS ORDERED: IBUPROFEN 800 MG TAB PO STA (20:36)
--- NOTE | 2016-11-29 20:44 | CT ---
EXAMINATION TYPE: CT abdomen pelvis w con DATE OF EXAM: 11/29/2016 COMPARISON: 04/10/2016 HISTORY: 26-year-old male Fever, nausea, vomiting, diarrhea and abdominal cramping. History of ulcera tive colitis. TECHNIQUE: Contiguous axial scanning of the abdomen and pelvis following administration of 100 ml Omn ipaque 300 IV contrast. Delayed images through the kidneys and coronal/sagittal reconstructions perf ormed. CT DLP: 360.90 mGycm Automated exposure control for dose reduction was used. FINDINGS: The heart is normal size with a small anterior pericardial effusion. Lung bases clear without pleural effusion. Redemonstrated nonspecific hypodense lesions within the liver, approximately 3 within the right lobe measuring up to 1.4 cm. There is some internal nodular enhancement but incomplete fill-in on delayed images. Atypical hemangiomas are possible especially given the overall stability. Small amount of foc al fat along the anterior falciform ligament. Portal venous system is patent. No biliary ductal dilat ation. Gallbladder, adrenal glands, and spleen show no gross abnormality. There appears to be atrophy of the neck of the pancreas, similar to prior exam. Mesenteric lymphadenopathy is also redemonstrated measuring up to 9 mm, largely unchanged. However, t here is increasing lower mesenteric lymphadenopathy along the high and may chain measuring up to 1 cm , axial image 62. Suspect prior colectomy and entero-rectal anastomosis, new from 04/10/2016 after ileostomy takedown. T here is inflammatory wall thickening around the anastomosis with fat stranding and possible small con tained along the right lateral margin of the staple line, axial image 65 through 72. No free fluid or free air seen. Bladder nondistended. Bones: No osseous destructive process. IMPRESSION: 1. INTERVAL ILEOSTOMY TAKEDOWN WITH SUSPECTED ENTERO-RECTAL ANASTOMOSIS. THERE IS INFLAMMATION ALONG THE ANASTOMOSIS AND A FINGERLIKE EXTENSION ARISING FROM THE RIGHT LATERAL ASPECT OF THE ANASTOMOSIS C ONTAINING FLUID AND SOME AIR (AXIAL IMAGE 65 THROUGH 72). CLINICAL CORRELATION RECOMMENDED FOR ACUTE COLITIS AND POSSIBLE SMALL CONTAINED LEAK. 2. INCREASING REACTIVE LOWER MESENTERIC LYMPHADENOPATHY MEASURING UP TO 1 CM.
[2016-11-29] MEDS ORDERED: LEVOFLOXACIN 750MG-D5W PMX 750 MG in DEXTROSE/WATER 1 150ML.BAG IVPB STA (21:02)
[2016-11-29] MEDS ORDERED: metroNIDAZOLE-NS PMX 500 MG in SALINE 1 100ML.BAG IVPB STA (21:02)
[2016-11-29 21:38] VITALS: BP 117/57; PULSE 104; RESP 16; TEMP 99.9
== END 2016-11-29 22:00 | disposition short-term general hospital (02) ==
LOC: EC 18:45
DX: T82.338A Leakage of other vascular grafts, initial encounter (principal); K52.9 Noninfective gastroenteritis and colitis, unspecified; Z88.0 Allergy status to penicillin; Z88.5 Allergy status to narcotic agent; Z91.011 Allergy to milk products; Y83.2 Surgical operation with anastomosis, bypass or graft as the cause of abnormal reaction of the patient, or of later complication, without mention of misadventure at the time of the procedure
CPT/HCPCS: 36415; 80053; 82150; 83605; 83690; 85025; 81001; 87040; 87324; 87045; 87046; 74177; 99285; 96365; 96367; 96375; 96361; J2405; J1956; Q9967; J0131

== ENCOUNTER 2016-12-12 00:43 | Emergency (ER) | payer BC ==
[2016-12-12] MEDS ORDERED: ACETAMINOPHEN TAB 500 MG TAB PO STA (01:34)
[2016-12-12 02:16] LABS: Appearance,Urine Clear (Clear); Bilirubin,Urine Negative (Negative); Glucose,Urine (UA) Negative (Negative); Ketones,Urine Negative (Negative); Leukocyte Esterase,Urine Negative (Negative); Nitrite,Urine Negative (Negative); Particle Count 1114; Protein,Urine 1+ (Negative); RBC,Urine 1 /hpf (0-5); Specific Gravity,Urine 1.025 (1.001-1.035); UA Billing (MACRO vs. MICRO) MICRO; Urobilinogen,Urine <2.0 mg/dL (<2.0); WBC,Urine 1 /hpf (0-5)
--- NOTE | 2016-12-12 02:34 | ED ---
General Adult HPI - General Chief complaint: Urogenital Stated complaint: Male Time Seen by Provider: 12/12/16 01:29 Source: patient Mode of arrival: ambulatory Limitations: no limitations - History of Present Illness Initial comments: 26-year-old male patient presents for evaluation of dysuria and suprapubic cramping. Patient states this has gone on for the last couple of days. He states whenever he urinates he has a lot of discomfort, and cramping in the lower abdomen. He denies any drainage from the penis, erythema, rash, or any lesions. He denies any hematuria. He denies any testicular pain or swelling. He states he is in a monogamous relationship of 6 years, and is not concerned for any STDs. He states that he was recently ill with nausea and vomiting for the last 2 days. He states that the symptoms have resolved and he was able to go to work without any problems today. Patient denies any recent rash, fever, chills, shortness breath, chest pain, abdominal pain, diarrhea, constipation, back pain, numbness, tingling, dizziness, weakness, headache, visual changes, or any other complaints. - Related Data Home Medications Medication Instructions Recorded Confirmed No Known Home Medications [No 11/29/16 12/12/16 Known Home Medications] Allergies Allergy/AdvReac Type Severity Reaction Status Date / Time oxycodone Allergy Unknown Verified 12/12/16 00:51 Penicillins Allergy Unknown Verified 12/12/16 00:51 Childhood lactose AdvReac Nausea & Verified 12/12/16 00:51 Vomiting & Diarrhea Review of Systems ROS Statement: Those systems with pertinent positive or pertinent negative responses have been documented in the HPI. ROS Other: All systems not noted in ROS Statement are negative. Past Medical History Additional Past Medical History / Comment(s): LACTOSE INTOLERANT,ULCERATIVE COLITIS-large bowel removed/colostomy, J pouch histoplasmosis, sinus issues. History of Any Multi-Drug Resistant Organisms: None Reported Past Surgical History: Adenoidectomy, Bowel Resection, Tonsillectomy Additional Past Surgical History / Comment(s): 02/08/15 bowel resection (large bowel removed) and colostomy placed, J pouch, multiple colonoscopies, CYSTS REMOVED FROM TAIL BONE Past Anesthesia/Blood Transfusion Reactions: No Reported Reaction Past Psychological History: No Psychological Hx Reported Smoking Status: Never smoker Past Alcohol Use History: None Reported Past Drug Use History: None Reported - Past Family History Father Family Medical History: Cancer Additional Family Medical History / Comment(s): Father has prostate cancer. Mother Family Medical History: No Reported History General Exam Limitations: no limitations General appearance: alert, in no apparent distress, other (This is a well- developed, well-nourished, well-appearing male who is in no acute distress. Eitel signs upon presentation were temperature 90.9, pulse 100, respirations 20 , blood pressure 124/72, pulse ox 99% on room air.) Respiratory exam: Present: normal lung sounds bilaterally. Absent: respiratory distress, wheezes, rales, rhonchi, stridor Cardiovascular Exam: Present: regular rate, normal rhythm, normal heart sounds. Absent: systolic murmur, diastolic murmur, rubs, gallop, clicks GI/Abdominal exam: Present: soft, tenderness (Mild tenderness over the suprapubic area.), normal bowel sounds. Absent: distended, guarding, rebound, rigid Back exam: Present: normal inspection. Absent: CVA tenderness (R), CVA tenderness (L) Neurological exam: Present: alert, oriented X3, CN II-XII intact Psychiatric exam: Present: normal affect, normal mood Skin exam: Present: warm, dry, intact, normal color. Absent: rash Course Vital Signs 12/12/16 12/12/16 00:49 02:53 Temperature 99 F 98.8 F Pulse Rate 100 78 Respiratory 20 16 Rate Blood Pressure 124/72 135/70 O2 Sat by Pulse 99 98 Oximetry Medical Decision Making - Medical Decision Making 26-year-old male patient presented for evaluation of dysuria and suprapubic cramping. Patient denies any chance of STD. Physical exam is unremarkable other than some tenderness over the supra pubic area. Urinalysis was performed and did show 1+ protein however no other abnormalities were present. Did send urine for a GC chlamydia culture. I did inform patient of the results of this would be available in 3 days and that they would call him with any abnormal results. I did instruct patient to increase his fluid intake especially water. I instructed him to follow up with his primary care physician for recheck in 1 -2 days. I instructed him to return here immediately for any new, worsening, or concerning symptoms. Patient verbalized understanding and agreed with this plan. - Lab Data Lab Results 12/12/16 Range/Units 01:10 Urine Color Yellow Urine Appearance Clear (Clear) Urine pH 8.0 (5.0-8.0) Ur Specific [place] 1.025 (1.001-1.035) Urine Protein 1+ H (Negative) Urine Glucose (UA) Negative (Negative) Urine Ketones Negative (Negative) Urine Blood Negative (Negative) Urine Nitrite Negative (Negative) Urine Bilirubin Negative (Negative) Urine Urobilinogen <2.0 (<2.0) mg/dL Ur Leukocyte Esterase Negative (Negative) Urine RBC 1 (0-5) /hpf Urine WBC 1 (0-5) /hpf Disposition Clinical Impression: Dysuria Disposition: HOME SELF-CARE Condition: Good Instructions: Dysuria (ED) Additional Instructions: Increase fluids, particularly water. A urine culture has been sent, they will call you in 3-4 days with abnormal results only. If you are concerned you can call within this timeframe to inquire about the results. Follow-up for recheck in 1-2 days with her primary care physician. Return here immediately for any new, worsening, or concerning symptoms. Referrals: Kia Romano MD [Primary Care Provider] - 1-2 days Time of Disposition: 02:34
[2016-12-12 02:54] VITALS: BP 135/70; PULSE 78; RESP 16; TEMP 98.8
== END 2016-12-12 02:54 | disposition home or self-care (01) ==
LOC: EC 00:43
DX: R30.0 Dysuria (principal); R10.30 Lower abdominal pain, unspecified; R11.2 Nausea with vomiting, unspecified; Z88.0 Allergy status to penicillin; Z88.8 Allergy status to other drugs, medicaments and biological substances; Z91.011 Allergy to milk products
CPT/HCPCS: 81001; 87491; 87591; 99283

== ENCOUNTER 2018-06-08 16:36 | Emergency (ER) | payer BC ==
[2018-06-08 16:46] VITALS: RESP 18
[2018-06-08] MEDS ORDERED: SODIUM CHLORIDE 0.9% 2,000 ML IV STA (16:49)
[2018-06-08] MEDS ORDERED: ONDANSETRON 4 MG/2 ML VIAL IVP STA (16:49)
[2018-06-08 17:21] LABS: Basophils # (A) 0.1 k/uL (0-0.2); Basophils % (A) 1 %; Eosinophils # (A) 0.3 k/uL (0-0.7); Eosinophils % (A) 4 %; Lymphocytes # (A) 2.7 k/uL (1.0-4.8); Lymphocytes % (A) 33 %; MCH 29.8 pg (25.0-35.0); MCHC 32.4 g/dL (31.0-37.0); MCV 91.9 fL (80.0-100.0); Mean Platelet Volume 6.9; Monocytes # (A) 0.5 k/uL (0-1.0); Monocytes % (A) 6 %; Neutrophils # (A) 4.3 k/uL (1.3-7.7); Neutrophils % (A) 53 %; Platelet Count 278 k/uL (150-450); RBC 4.68 m/uL (4.30-5.90); RDW 12.9 % (11.5-15.5); WBC 8.2 k/uL (3.8-10.6)
--- NOTE | 2018-06-08 17:25 | ED ---
Nausea/Vomiting/Diarrhea HPI - General Chief complaint: Nausea/Vomiting/Diarrhea Stated complaint: NVD Time Seen by Provider: 06/08/18 16:48 Source: patient, RN notes reviewed Mode of arrival: ambulatory Limitations: no limitations - History of Present Illness Initial comments: This a 27 year old male presents emergency Department with chief complaint of nausea vomiting diarrhea. Patient states she's had persistent symptoms for last 1 week. Patient did see PCP who didn't stool studies which were negative. Patient states she saw his PCP and advised to have his electrolytes checked. He has tried some Imodium. Patient does have underlying ulcerative colitis with prior J-pouch. He's had no acute issues with this recently. Patient denies any fevers or chills. Patient denies any focal abdominal pain. Denies any melena hematochezia. - Related Data Previous Rx's Medication Instructions Recorded Diphenoxylate HCl/Atropine 1 - 2 tab PO QID PRN 3 Days #24 tab 06/08/18 [Lomotil 2.5-0.025 mg Tablet] Ondansetron Odt [Zofran Odt] 4 mg PO Q8HR PRN #10 tab 06/08/18 Allergies Allergy/AdvReac Type Severity Reaction Status Date / Time oxycodone Allergy Unknown Verified 06/08/18 17:30 Penicillins Allergy Unknown Verified 06/08/18 17:30 Childhood lactose AdvReac Nausea & Verified 06/08/18 17:30 Vomiting & Diarrhea Review of Systems ROS Statement: Those systems with pertinent positive or pertinent negative responses have been documented in the HPI. ROS Other: All systems not noted in ROS Statement are negative. Past Medical History Additional Past Medical History / Comment(s): LACTOSE INTOLERANT,ULCERATIVE COLITIS-large bowel removed/colostomy, J pouch histoplasmosis, sinus issues. History of Any Multi-Drug Resistant Organisms: None Reported Past Surgical History: Adenoidectomy, Bowel Resection, Tonsillectomy Additional Past Surgical History / Comment(s): 02/08/15 bowel resection (large bowel removed) and colostomy placed, J pouch, multiple colonoscopies, CYSTS REMOVED FROM TAIL BONE Past Anesthesia/Blood Transfusion Reactions: No Reported Reaction Past Psychological History: No Psychological Hx Reported Smoking Status: Never smoker Past Alcohol Use History: None Reported Past Drug Use History: None Reported - Past Family History Father Family Medical History: Cancer Additional Family Medical History / Comment(s): Father has prostate cancer. Mother Family Medical History: No Reported History General Exam Limitations: no limitations General appearance: alert, in no apparent distress Head exam: Present: atraumatic, normocephalic, normal inspection Eye exam: Present: normal appearance, PERRL, EOMI. Absent: scleral icterus, conjunctival injection, periorbital swelling Respiratory exam: Present: normal lung sounds bilaterally. Absent: respiratory distress, wheezes, rales, rhonchi, stridor Cardiovascular Exam: Present: regular rate, normal rhythm, normal heart sounds. Absent: systolic murmur, diastolic murmur, rubs, gallop, clicks GI/Abdominal exam: Present: soft, normal bowel sounds. Absent: distended, tenderness, guarding, rebound, rigid Back exam: Absent: CVA tenderness (R), CVA tenderness (L) Neurological exam: Present: alert, oriented X3, CN II-XII intact Skin exam: Present: warm, dry, intact, normal color. Absent: rash Course Vital Signs 06/08/18 16:44 Temperature 98 F Pulse Rate 73 Respiratory 18 Rate Blood Pressure 126/69 O2 Sat by Pulse 100 Oximetry Medical Decision Making - Medical Decision Making 27-year-old male presented for nausea vomiting diarrhea. Patient has a negative C. diff, negative stool studies. This most likely was related to antibiotic use non-C. difficile. Patient we discharged with Lomotil, advised take probiotics and return for any worsening symptoms. - Lab Data Result diagrams: 06/08/18 17:08 06/08/18 17:08 Lab Results 06/08/18 06/08/18 06/08/18 Range/Units 17:08 17:08 17:11 WBC 8.2 (3.8-10.6) k/uL RBC 4.68 (4.30-5.90) m/uL Hgb 14.0 (13.0-17.5) gm/dL Hct 43.0 (39.0-53.0) % MCV 91.9 (80.0-100.0) fL MCH 29.8 (25.0-35.0) pg MCHC 32.4 (31.0-37.0) g/dL RDW 12.9 (11.5-15.5) % Plt Count 278 (150-450) k/uL Neutrophils % 53 % Lymphocytes % 33 % Monocytes % 6 % Eosinophils % 4 % Basophils % 1 % Neutrophils # 4.3 (1.3-7.7) k/uL Lymphocytes # 2.7 (1.0-4.8) k/uL Monocytes # 0.5 (0-1.0) k/uL Eosinophils # 0.3 (0-0.7) k/uL Basophils # 0.1 (0-0.2) k/uL Sodium 140 (137-145) mmol/L Potassium 4.2 (3.5-5.1) mmol/L Chloride 103 (98-107) mmol/L Carbon Dioxide 27 (22-30) mmol/L Anion Gap 10 mmol/L BUN 15 (9-20) mg/dL Creatinine 0.87 (0.66-1.25) mg/dL Est GFR (CKD-EPI)AfAm >90 (>60 ml/min/1.73 sqM) Est GFR (CKD-EPI)NonAf >90 (>60 ml/min/1.73 sqM) Glucose 89 (74-99) mg/dL Calcium 9.6 (8.4-10.2) mg/dL Phosphorus 4.6 H (2.5-4.5) mg/dL Magnesium 1.9 (1.6-2.3) mg/dL Total Bilirubin 0.5 (0.2-1.3) mg/dL AST 29 (17-59) U/L ALT 21 (21-72) U/L Alkaline Phosphatase 55 (38-126) U/L Total Protein 7.4 (6.3-8.2) g/dL Albumin 4.6 (3.5-5.0) g/dL Amylase 49 (30-110) U/L Lipase 37 (23-300) U/L Urine Color Yellow Urine Appearance Clear (Clear) Urine pH 5.5 (5.0-8.0) Ur Specific [place] 1.021 (1.001-1.035) Urine Protein Negative (Negative) Urine Glucose (UA) Negative (Negative) Urine Ketones Negative (Negative) Urine Blood Negative (Negative) Urine Nitrite Negative (Negative) Urine Bilirubin Negative (Negative) Urine Urobilinogen <2.0 (<2.0) mg/dL Ur Leukocyte Esterase Negative (Negative) Disposition Clinical Impression: Diarrhea Disposition: HOME SELF-CARE Condition: Stable Instructions (If sedation given, give patient instructions): Acute Diarrhea (ED) Additional Instructions: Please return to the Emergency Department if symptoms worsen or any other concerns. Prescriptions: Diphenoxylate HCl/Atropine [Lomotil 2.5-0.025 mg Tablet] 1 - 2 tab PO QID PRN 3 Days #24 tab PRN Reason: Diarrhea Ondansetron Odt [Zofran Odt] 4 mg PO Q8HR PRN #10 tab PRN Reason: Nausea Is patient prescribed a controlled substance at d/c from ED?: No Referrals: Kia Romano MD [Primary Care Provider] - 1-2 days Time of Disposition: 17:56
[2018-06-08 17:29] LABS: Appearance,Urine Clear (Clear); Bilirubin,Urine Negative (Negative); Blood,Urine Negative (Negative); Color,Urine Yellow; Glucose,Urine (UA) Negative (Negative); Ketones,Urine Negative (Negative); Leukocyte Esterase,Urine Negative (Negative); Nitrite,Urine Negative (Negative); PH, Urine 5.5 (5.0-8.0); Protein,Urine Negative (Negative); Specific Gravity,Urine 1.021 (1.001-1.035); Urobilinogen,Urine <2.0 mg/dL (<2.0)
[2018-06-08 17:32] LABS: ALT 21 U/L (21-72); AST 29 U/L (17-59); Albumin 4.6 g/dL (3.5-5.0); Alkaline Phosphatase 55 U/L (38-126); Amylase 49 U/L (30-110); Anion Gap 10 mmol/L; Blood Urea Nitrogen 15 mg/dL (9-20); Calcium 9.6 mg/dL (8.4-10.2); Carbon Dioxide 27 mmol/L (22-30); Chloride 103 mmol/L (98-107); Glucose 89 mg/dL (74-99); Lipase 37 U/L (23-300); Magnesium 1.9 mg/dL (1.6-2.3); Phosphorus 4.6 mg/dL (2.5-4.5); Sodium 140 mmol/L (137-145); Total Bilirubin 0.5 mg/dL (0.2-1.3); Total Protein 7.4 g/dL (6.3-8.2)
[2018-06-08 17:42] LABS: Potassium 4.2 mmol/L (3.5-5.1)
[2018-06-08 18:15] VITALS: BP 127/90; PULSE 75; TEMP 97.5
== END 2018-06-08 18:15 | disposition home or self-care (01) ==
LOC: EC 16:36
DX: R19.7 Diarrhea, unspecified (principal); R11.2 Nausea with vomiting, unspecified; K51.90 Ulcerative colitis, unspecified, without complications; Z88.0 Allergy status to penicillin; Z88.5 Allergy status to narcotic agent; Z91.018 Allergy to other foods; Z93.4 Other artificial openings of gastrointestinal tract status; Z90.49 Acquired absence of other specified parts of digestive tract
CPT/HCPCS: 99284; 96374; 96361 ×2; 36415; 80053; 82150; 83690; 83735; 84100; 85025; 81003; J2405

== ENCOUNTER 2018-07-18 18:06 | Emergency (ER) | payer BC ==
[2018-07-18] MEDS ORDERED: ONDANSETRON 4 MG/2 ML VIAL IVP STA (18:43)
[2018-07-18] MEDS ORDERED: SODIUM CHLORIDE 0.9% 1,000 ML IV STA ×2 (18:43)
[2018-07-18] MEDS ORDERED: PANTOPRAZOLE 40 MG/10 ML VIAL IVP STA (18:44)
--- NOTE | 2018-07-18 18:49 | ED ---
Nausea/Vomiting/Diarrhea HPI - General Chief complaint: Nausea/Vomiting/Diarrhea Stated complaint: headache/vomiting Time Seen by Provider: 07/18/18 18:30 Source: patient, RN notes reviewed, old records reviewed Mode of arrival: ambulatory Limitations: no limitations - History of Present Illness Initial comments: This is a 27-year-old male the ER for evaluation history of Crohn's history of J pouch, patient has nausea vomiting and diarrhea for the past 2 days sick contacts include kids and family. No fevers no abdominal pain currently. MD complaint: nausea, vomiting, diarrhea -: days(s) Description of Vomiting: food contents, watery, bilious Description of Diarrhea: water Associated Abdominal Pain: No Location: diffuse Radiation: none Severity: moderate Severity scale (1-10): 4 Improves with: none Worsens with: none Associated Symptoms: denies other symptoms - Related Data Previous Rx's Medication Instructions Recorded Ondansetron Odt [Zofran ODT] 4 mg PO Q8HR PRN #10 tab 07/18/18 Allergies Allergy/AdvReac Type Severity Reaction Status Date / Time oxycodone Allergy Unknown Verified 07/18/18 18:34 Penicillins Allergy Rash/Hives Verified 07/18/18 18:34 lactose AdvReac Nausea & Verified 07/18/18 18:34 Vomiting & Diarrhea Review of Systems ROS Statement: Those systems with pertinent positive or pertinent negative responses have been documented in the HPI. ROS Other: All systems not noted in ROS Statement are negative. Past Medical History Additional Past Medical History / Comment(s): LACTOSE INTOLERANT,ULCERATIVE COLITIS-large bowel removed/colostomy, J pouch histoplasmosis, sinus issues. History of Any Multi-Drug Resistant Organisms: None Reported Past Surgical History: Adenoidectomy, Bowel Resection, Tonsillectomy Additional Past Surgical History / Comment(s): 02/08/15 bowel resection (large bowel removed) and colostomy placed, J pouch, multiple colonoscopies, CYSTS REMOVED FROM TAIL BONE Past Anesthesia/Blood Transfusion Reactions: No Reported Reaction Past Psychological History: No Psychological Hx Reported Smoking Status: Never smoker Past Alcohol Use History: None Reported Past Drug Use History: None Reported - Past Family History Father Family Medical History: Cancer Additional Family Medical History / Comment(s): Father has prostate cancer. Mother Family Medical History: No Reported History General Exam Limitations: no limitations General appearance: alert, in no apparent distress Head exam: Present: atraumatic, normocephalic, normal inspection Eye exam: Present: normal appearance, PERRL, EOMI. Absent: scleral icterus, conjunctival injection, periorbital swelling ENT exam: Present: normal exam, mucous membranes moist Neck exam: Present: normal inspection. Absent: tenderness, meningismus, lymphadenopathy Respiratory exam: Present: normal lung sounds bilaterally. Absent: respiratory distress, wheezes, rales, rhonchi, stridor Cardiovascular Exam: Present: regular rate, normal rhythm, normal heart sounds. Absent: systolic murmur, diastolic murmur, rubs, gallop, clicks GI/Abdominal exam: Present: soft, normal bowel sounds. Absent: distended, tenderness, guarding, rebound, rigid Extremities exam: Present: normal inspection, full ROM, normal capillary refill. Absent: tenderness, pedal edema, joint swelling, calf tenderness Back exam: Present: normal inspection Neurological exam: Present: alert, oriented X3, CN II-XII intact Psychiatric exam: Present: normal affect, normal mood Skin exam: Present: warm, dry, intact, normal color. Absent: rash Course Vital Signs 07/18/18 07/18/18 18:08 20:46 Temperature 98.0 F 97.9 F Pulse Rate 84 73 Respiratory 18 16 Rate Blood Pressure 137/89 128/78 O2 Sat by Pulse 99 99 Oximetry Medical Decision Making - Medical Decision Making 27 male the ER for evasive nausea vomiting and diarrhea. Symptoms improved in the ER feels improved, patient can be discharged home - Lab Data Result diagrams: 07/18/18 18:50 07/18/18 18:50 Lab Results 07/18/18 07/18/18 Range/Units 18:50 18:50 WBC 9.7 (3.8-10.6) k/uL RBC 4.60 (4.30-5.90) m/uL Hgb 13.6 (13.0-17.5) gm/dL Hct 41.8 (39.0-53.0) % MCV 90.7 (80.0-100.0) fL MCH 29.6 (25.0-35.0) pg MCHC 32.6 (31.0-37.0) g/dL RDW 13.6 (11.5-15.5) % Plt Count 267 (150-450) k/uL Neutrophils % 64 % Lymphocytes % 24 % Monocytes % 5 % Eosinophils % 3 % Basophils % 1 % Neutrophils # 6.2 (1.3-7.7) k/uL Lymphocytes # 2.3 (1.0-4.8) k/uL Monocytes # 0.5 (0-1.0) k/uL Eosinophils # 0.3 (0-0.7) k/uL Basophils # 0.1 (0-0.2) k/uL Sodium 141 (137-145) mmol/L Potassium 4.2 (3.5-5.1) mmol/L Chloride 102 (98-107) mmol/L Carbon Dioxide 29 (22-30) mmol/L Anion Gap 10 mmol/L BUN 18 (9-20) mg/dL Creatinine 0.98 (0.66-1.25) mg/dL Est GFR (CKD-EPI)AfAm >90 (>60 ml/min/1.73 sqM) Est GFR (CKD-EPI)NonAf >90 (>60 ml/min/1.73 sqM) Glucose 98 (74-99) mg/dL Calcium 9.3 (8.4-10.2) mg/dL Phosphorus 4.3 (2.5-4.5) mg/dL Magnesium 1.8 (1.6-2.3) mg/dL Total Bilirubin 0.3 (0.2-1.3) mg/dL AST 22 (17-59) U/L ALT 28 (21-72) U/L Alkaline Phosphatase 59 (38-126) U/L Total Protein 7.1 (6.3-8.2) g/dL Albumin 4.5 (3.5-5.0) g/dL Disposition Clinical Impression: Colitis, Vomiting, Nausea & vomiting Disposition: HOME SELF-CARE Condition: Good Instructions (If sedation given, give patient instructions): Acute Nausea and Vomiting (ED) Prescriptions: Ondansetron Odt [Zofran ODT] 4 mg PO Q8HR PRN #10 tab PRN Reason: nausea/vomiting Is patient prescribed a controlled substance at d/c from ED?: No Referrals: Kia Romano MD [Primary Care Provider] - 1-2 days
[2018-07-18 19:04] LABS: Basophils # (A) 0.1 k/uL (0-0.2); Basophils % (A) 1 %; Eosinophils # (A) 0.3 k/uL (0-0.7); Eosinophils % (A) 3 %; HCT 41.8 % (39.0-53.0); HGB 13.6 gm/dL (13.0-17.5); Lymphocytes # (A) 2.3 k/uL (1.0-4.8); Lymphocytes % (A) 24 %; MCH 29.6 pg (25.0-35.0); MCHC 32.6 g/dL (31.0-37.0); MCV 90.7 fL (80.0-100.0); Mean Platelet Volume 7.5; Monocytes # (A) 0.5 k/uL (0-1.0); Monocytes % (A) 5 %; Neutrophils # (A) 6.2 k/uL (1.3-7.7); Neutrophils % (A) 64 %; Platelet Count 267 k/uL (150-450); RDW 13.6 % (11.5-15.5); WBC 9.7 k/uL (3.8-10.6)
[2018-07-18 19:09] LABS: ALT 28 U/L (21-72); AST 22 U/L (17-59); Albumin 4.5 g/dL (3.5-5.0); Alkaline Phosphatase 59 U/L (38-126); Anion Gap 10 mmol/L; Blood Urea Nitrogen 18 mg/dL (9-20); Calcium 9.3 mg/dL (8.4-10.2); Carbon Dioxide 29 mmol/L (22-30); Chloride 102 mmol/L (98-107); Glucose 98 mg/dL (74-99); Magnesium 1.8 mg/dL (1.6-2.3); Phosphorus 4.3 mg/dL (2.5-4.5); Potassium 4.2 mmol/L (3.5-5.1); Sodium 141 mmol/L (137-145); Total Bilirubin 0.3 mg/dL (0.2-1.3); Total Protein 7.1 g/dL (6.3-8.2)
[2018-07-18] MEDS ORDERED: MORPHINE SULFATE 4 MG/ML SYRINGE IVP STA (19:24)
--- NOTE | 2018-07-18 19:28 | XR ---
EXAMINATION TYPE: XR KUB DATE OF EXAM: 07/18/2018 7:23 PM CLINICAL HISTORY: Nausea vomiting and diarrhea for 3 days. Abdominal pain. TECHNIQUE: Two Upright KUB images of the abdomen are obtained. COMPARISON: CT abdomen pelvis November 29, 2016. FINDINGS: Scattered gas is seen in non-distended stomach and small bowel loops. Gas and fecal materia l is seen in non-distended colon. Mild hepatosplenomegaly is redemonstrated and felt stable. No suspi cious calcifications or pneumoperitoneum The lung bases are clear and the osseous structures are inta ct. IMPRESSION: Overall nonobstructive bowel gas pattern.
[2018-07-18 20:47] VITALS: BP 128/78; PULSE 73; RESP 16; TEMP 97.9
--- NOTE | 2018-07-19 08:26 | CDI ---
Documentation Clarification OP Dear Hernandez GARCIA, DO Please do addendum to ED report for missing HPI and Physical examination. Thank you, [employer] If you have any questions, please contact Geodetic Surveyor Technologist at [phone] [facility]
== END 2018-07-18 20:47 | disposition home or self-care (01) ==
LOC: EC 18:06
DX: K52.9 Noninfective gastroenteritis and colitis, unspecified (principal); R51 Headache; Z87.19 Personal history of other diseases of the digestive system; Z93.3 Colostomy status; Z88.5 Allergy status to narcotic agent; Z88.0 Allergy status to penicillin; Z91.011 Allergy to milk products
CPT/HCPCS: 36415; 80053; 83735; 84100; 85025; 74018; 99284; 96374; 96375 ×2; 96361 ×2; J2270; J2405; C9113

== ENCOUNTER 2019-02-19 00:48 | Emergency (ER) | payer BC, OTHER ==
[2019-02-19 00:55] VITALS: BP 133/69; PULSE 73; RESP 15; TEMP 97.6
[2019-02-19] MEDS ORDERED: DOXYCYCLINE 100 MG CAP PO STA (01:06)
[2019-02-19] MEDS ORDERED: DIPH,PERTUS(ACELL)TETVAC-LF 0.5 ML VIAL IM ONE (01:06)
[2019-02-19] MEDS ORDERED: LIDOCAINE 1% INJ 10MG/ML (20 ML MDV) SQ ONE (01:08)
--- NOTE | 2019-02-19 01:08 | ED ---
Animal Bite HPI - General Chief Complaint: Animal Bite Stated Complaint: Dog Bite Time Seen by Provider: 02/19/19 00:55 Source: patient Mode of arrival: ambulatory Limitations: no limitations - History of Present Illness Initial Comments: 28-year-old male presenting for left index finger laceration sustained from dog bite. Patient states his dog with his cage and had episode of vomiting he states that he attempted to clean it up and the dog bit his index finger. He denies any abnormal behaviors prior to this he states his vaccinations including rabies is up-to-date. He denies any other areas of injury he states he is able to range of the digit however this is painful the site of laceration. Patient often thought he needed laceration repair and presents emergency department for evaluation patient unsure of last tetanus. Remaining review of systems negative - Related Data Previous Rx's Medication Instructions Recorded Doxycycline [Vibramycin] 100 mg PO DAILY 14 Days #14 capsule 02/19/19 Allergies Allergy/AdvReac Type Severity Reaction Status Date / Time oxycodone Allergy Unknown Verified 02/19/19 00:55 Penicillins Allergy Rash/Hives Verified 02/19/19 00:55 lactose AdvReac Nausea & Verified 02/19/19 00:55 Vomiting & Diarrhea Review of Systems ROS Statement: Those systems with pertinent positive or pertinent negative responses have been documented in the HPI. ROS Other: All systems not noted in ROS Statement are negative. Past Medical History Additional Past Medical History / Comment(s): LACTOSE INTOLERANT,ULCERATIVE COLITIS-large bowel removed/colostomy, J pouch histoplasmosis, sinus issues. History of Any Multi-Drug Resistant Organisms: None Reported Past Surgical History: Adenoidectomy, Bowel Resection, Tonsillectomy Additional Past Surgical History / Comment(s): 02/08/15 bowel resection (large bowel removed) and colostomy placed, J pouch, multiple colonoscopies, CYSTS REMOVED FROM TAIL BONE Past Anesthesia/Blood Transfusion Reactions: No Reported Reaction Past Psychological History: No Psychological Hx Reported Smoking Status: Never smoker Past Alcohol Use History: None Reported Past Drug Use History: None Reported - Past Family History Father Family Medical History: Cancer Additional Family Medical History / Comment(s): Father has prostate cancer. Mother Family Medical History: No Reported History General Exam - General Exam Comments Initial Comments: General: The patient is awake and alert, in no distress, and does not appear acutely ill. Eye: Pupils are equal, round and reactive to light, extra-ocular movements are intact. No nystagmus. There is normal conjunctiva bilaterally. No signs of icterus. Musculoskeletal: Normal ROM, no tenderness. Strength 5/5. Sensation intact. Radial pulses equal bilaterally 2+. Patient is able to range at MCP, PIP and DIP joints. No limitations Neurological: A&O x 3. CN II-XII intact grossly, There are no obvious motor or sensory deficits. Coordination appears grossly intact. Speech is normal. Skin: Skin is warm and dry and no rashes or lesions are noted. 3cm laceration irregular with exposure of adipose with no evidence of exposure of tendon nor osseous structures. Psychiatric: Cooperative, appropriate mood & affect, normal judgment. Limitations: no limitations Course Vital Signs 02/19/19 00:51 Temperature 97.6 F Pulse Rate 73 Respiratory 15 Rate Blood Pressure 133/69 O2 Sat by Pulse 99 Oximetry Procedures - Laceration Laceration #1 Consent Obtained: verbal consent Site: hand Size (cm): 3 Description: linear Depth: simple, single layer Anesthetic Used: lidocaine 1% Anesthesia Technique: nerve block Amount (mls): 2 Pre-repair: wound explored, irrigated extensively, deep structures intact Type of Sutures: nylon Size of Sutures: 5-0 Number of Sutures: 7 Technique: simple, interrupted Patient Tolerated Procedure: well, no complications Medical Decision Making - Medical Decision Making 28-year-old male presenting today for chief complaint of left index finger laceration. Sustained from dog bite. Ears extensively irrigated and cleansed repaired loosely given the risk infection however given the significant soft tissue damage this was necessary given the gaping nature. Patient had a bandage applied tetanus updated given initial dose of doxycycline-patient has penicillin ALLERGY. Patient is given outpatient prescription for doxycycline risk of infection and signs discussed the patient importance of follow-up the patient felt a decrease in range of motion he is to follow-up with orthopedic surgery as soon as possible. Return parameters discussed case discussed with attending provider patient was discharged appearing well. Disposition Clinical Impression: Dog bite of finger Disposition: HOME SELF-CARE Condition: Good Instructions (If sedation given, give patient instructions): Animal Bite (ED) Additional Instructions: Please use medication as discussed. Please follow-up with family doctor in the next 2 days for wound check, any limitations in bending of digit needs further evaluation by orthopedic surgeon as discussed. Please return to emergency room if the symptoms increase or worsen or for any other concerns. Prescriptions: Doxycycline [Vibramycin] 100 mg PO DAILY 14 Days #14 capsule Is patient prescribed a controlled substance at d/c from ED?: No Referrals: Kia Romano MD [Primary Care Provider] - 1-2 days Time of Disposition: 01:08
--- NOTE | 2019-02-19 01:31 | XR ---
EXAMINATION TYPE: XR finger LT DATE OF EXAM: 02/19/2019 COMPARISON: NONE HISTORY: Dogbite. Pain TECHNIQUE: 3 views of the left index finger were obtained. FINDINGS: The detail is limited by the bandages over the proximal phalanx. I see no fracture nor disl ocation. Joint spaces are normal. IMPRESSION: No acute bony abnormality. No definite evidence for a foreign body.
== END 2019-02-19 01:52 | disposition home or self-care (01) ==
LOC: EC 00:48
DX: S61.211A Laceration without foreign body of left index finger without damage to nail, initial encounter (principal); Z23 Encounter for immunization; Z88.5 Allergy status to narcotic agent; Z88.0 Allergy status to penicillin; Z91.011 Allergy to milk products; W54.0XXA Bitten by dog, initial encounter; Y93.89 Activity, other specified
CPT/HCPCS: 73140; 90715; 99283; 12002; 90471; J2001

== ENCOUNTER 2020-05-22 11:26 | Emergency (ER) | payer OTHER ==
[2020-05-22] MEDS ORDERED: SODIUM CHLORIDE 0.9% 1,000 ML IV STA (12:07)
--- NOTE | 2020-05-22 12:37 | ED ---
General Adult HPI - General Chief complaint: Chest Pain Stated complaint: Chest Pain Time Seen by Provider: 05/22/20 11:49 Source: patient, RN notes reviewed Mode of arrival: ambulatory Limitations: no limitations - History of Present Illness Initial comments: 29-year-old male presents emergency Department with chief complaint of chest discomfort shortness of breath. Patient states he's been sick with nasal congestion last 4 days states is a slight cough no history of lung disease including asthma and patient is a nonsmoker. Patient states he feels like he could not get enough air in. No prior cardiac disease patient does have a history of GI disorders. Patient denies fevers chills sick contacts. - Related Data Previous Rx's Medication Instructions Recorded Doxycycline [Vibramycin] 100 mg PO DAILY 14 Days #14 capsule 02/19/19 predniSONE 50 mg PO DAILY #5 tab 05/22/20 Allergies Allergy/AdvReac Type Severity Reaction Status Date / Time oxycodone Allergy Unknown Verified 05/22/20 11:39 Penicillins Allergy Rash/Hives Verified 05/22/20 11:39 lactose AdvReac Nausea & Verified 05/22/20 11:39 Vomiting & Diarrhea Review of Systems ROS Statement: Those systems with pertinent positive or pertinent negative responses have been documented in the HPI. ROS Other: All systems not noted in ROS Statement are negative. Past Medical History Additional Past Medical History / Comment(s): LACTOSE INTOLERANT,ULCERATIVE COLITIS-large bowel removed/colostomy, J pouch histoplasmosis, sinus issues. History of Any Multi-Drug Resistant Organisms: None Reported Past Surgical History: Adenoidectomy, Bowel Resection, Tonsillectomy Additional Past Surgical History / Comment(s): 02/08/15 bowel resection (large bowel removed) and colostomy placed, J pouch, multiple colonoscopies, CYSTS REMOVED FROM TAIL BONE Past Anesthesia/Blood Transfusion Reactions: No Reported Reaction Past Psychological History: Depression Smoking Status: Never smoker Past Alcohol Use History: Rare Past Drug Use History: None Reported - Past Family History Father Family Medical History: Cancer Additional Family Medical History / Comment(s): Father has prostate cancer. Mother Family Medical History: No Reported History General Exam Limitations: no limitations General appearance: alert, in no apparent distress Head exam: Present: atraumatic, normocephalic, normal inspection Eye exam: Present: normal appearance, PERRL, EOMI. Absent: scleral icterus, conjunctival injection, periorbital swelling ENT exam: Present: normal exam, normal oropharynx, mucous membranes moist, TM's normal bilaterally Neck exam: Present: normal inspection. Absent: tenderness, meningismus, lymphadenopathy Respiratory exam: Present: normal lung sounds bilaterally, chest wall tende rness. Absent: respiratory distress, wheezes, rales, rhonchi, stridor Cardiovascular Exam: Present: regular rate, normal rhythm, normal heart sounds. Absent: systolic murmur, diastolic murmur, rubs, gallop, clicks GI/Abdominal exam: Present: soft, normal bowel sounds. Absent: distended, tenderness, guarding, rebound, rigid Course Vital Signs 05/22/20 11:36 Temperature 98.2 F Pulse Rate 82 Respiratory 17 Rate Blood Pressure 152/95 O2 Sat by Pulse 99 Oximetry EKG Findings - EKG Comments: EKG Findings:: EKG performed at 11:52 normal sinus rhythm rate of 75 MO 138 QRS 90 QT/QTC 366/408 Medical Decision Making - Medical Decision Making X-ray is unremarkable., Labs negative d-dimer and negative troponin EKG is unremarkable patient has negative Covid. Patient has symptoms consistent with pleurisy versus costochondritis, patient discharge in stable condition return parameters were discussed. - Lab Data Result diagrams: 05/22/20 12:25 05/22/20 12:25 Lab Results 05/22/20 05/22/20 05/22/20 Range/Units 12:25 12:25 12:25 WBC 6.2 (3.8-10.6) k/uL RBC 4.22 L (4.30-5.90) m/uL Hgb 12.9 L (13.0-17.5) gm/dL Hct 37.3 L (39.0-53.0) % MCV 88.4 (80.0-100.0) fL MCH 30.4 (25.0-35.0) pg MCHC 34.4 (31.0-37.0) g/dL RDW 12.3 (11.5-15.5) % Plt Count 266 (150-450) k/uL MPV 7.1 Neutrophils % 70 % Lymphocytes % 21 % Monocytes % 5 % Eosinophils % 2 % Basophils % 1 % Neutrophils # 4.4 (1.3-7.7) k/uL Lymphocytes # 1.3 (1.0-4.8) k/uL Monocytes # 0.3 (0-1.0) k/uL Eosinophils # 0.1 (0-0.7) k/uL Basophils # 0.0 (0-0.2) k/uL D-Dimer <0.17 (<0.60) mg/L FEU Sodium 140 (137-145) mmol/L Potassium 3.6 (3.5-5.1) mmol/L Chloride 101 (98-107) mmol/L Carbon Dioxide 30 (22-30) mmol/L Anion Gap 9 mmol/L BUN 12 (9-20) mg/dL Creatinine 0.77 (0.66-1.25) mg/dL Est GFR (CKD-EPI)AfAm >90 (>60 ml/min/1.73 sqM) Est GFR (CKD-EPI)NonAf >90 (>60 ml/min/1.73 sqM) Glucose 94 (74-99) mg/dL Calcium 9.4 (8.4-10.2) mg/dL Total Bilirubin 0.5 (0.2-1.3) mg/dL AST 21 (17-59) U/L ALT 11 (4-49) U/L Alkaline Phosphatase 48 (38-126) U/L Total Protein 7.2 (6.3-8.2) g/dL Albumin 4.5 (3.5-5.0) g/dL Coronavirus (PCR) (Not Detectd) 05/22/20 Range/Units 12:28 WBC (3.8-10.6) k/uL RBC (4.30-5.90) m/uL Hgb (13.0-17.5) gm/dL Hct (39.0-53.0) % MCV (80.0-100.0) fL MCH (25.0-35.0) pg MCHC (31.0-37.0) g/dL RDW (11.5-15.5) % Plt Count (150-450) k/uL MPV Neutrophils % % Lymphocytes % % Monocytes % % Eosinophils % % Basophils % % Neutrophils # (1.3-7.7) k/uL Lymphocytes # (1.0-4.8) k/uL Monocytes # (0-1.0) k/uL Eosinophils # (0-0.7) k/uL Basophils # (0-0.2) k/uL D-Dimer (<0.60) mg/L FEU Sodium (137-145) mmol/L Potassium (3.5-5.1) mmol/L Chloride (98-107) mmol/L Carbon Dioxide (22-30) mmol/L Anion Gap mmol/L BUN (9-20) mg/dL Creatinine (0.66-1.25) mg/dL Est GFR (CKD-EPI)AfAm (>60 ml/min/1.73 sqM) Est GFR (CKD-EPI)NonAf (>60 ml/min/1.73 sqM) Glucose (74-99) mg/dL Calcium (8.4-10.2) mg/dL Total Bilirubin (0.2-1.3) mg/dL AST (17-59) U/L ALT (4-49) U/L Alkaline Phosphatase (38-126) U/L Total Protein (6.3-8.2) g/dL Albumin (3.5-5.0) g/dL Coronavirus (PCR) Not Detected (Not Detectd) Disposition Clinical Impression: URI (upper respiratory infection), Pleurisy Disposition: HOME SELF-CARE Condition: Stable Instructions (If sedation given, give patient instructions): Chest Wall Pain (ED) Additional Instructions: Please return to the Emergency Department if symptoms worsen or any other concerns. Prescriptions: predniSONE 50 mg PO DAILY #5 tab Is patient prescribed a controlled substance at d/c from ED?: No Referrals: Kia Romano MD [Primary Care Provider] - 1-2 days Time of Disposition: 13:33
[2020-05-22 12:48] LABS: HCT 37.3 % (39.0-53.0); HGB 12.9 gm/dL (13.0-17.5); Lymphocytes % (A) 21 %; MCH 30.4 pg (25.0-35.0); MCHC 34.4 g/dL (31.0-37.0); MCV 88.4 fL (80.0-100.0); Mean Platelet Volume 7.1; Neutrophils % (A) 70 %; Platelet Count 266 k/uL (150-450); RBC 4.22 m/uL (4.30-5.90); RDW 12.3 % (11.5-15.5); WBC 6.2 k/uL (3.8-10.6)
[2020-05-22 12:49] LABS: Basophils % (A) 1 %; Eosinophils # (A) 0.1 k/uL (0-0.7); Eosinophils % (A) 2 %; Lymphocytes # (A) 1.3 k/uL (1.0-4.8); Monocytes # (A) 0.3 k/uL (0-1.0); Monocytes % (A) 5 %; Neutrophils # (A) 4.4 k/uL (1.3-7.7)
[2020-05-22 13:09] LABS: ALT 11 U/L (4-49); AST 21 U/L (17-59); African American GFR (CKD) >90 (>60 ml/min/1.73 sqM); Albumin 4.5 g/dL (3.5-5.0); Alkaline Phosphatase 48 U/L (38-126); Anion Gap 9 mmol/L; Blood Urea Nitrogen 12 mg/dL (9-20); Calcium 9.4 mg/dL (8.4-10.2); Carbon Dioxide 30 mmol/L (22-30); Chloride 101 mmol/L (98-107); Glucose 94 mg/dL (74-99); Non-African American GFR(CKD) >90 (>60 ml/min/1.73 sqM); Sodium 140 mmol/L (137-145); Total Bilirubin 0.5 mg/dL (0.2-1.3); Total Protein 7.2 g/dL (6.3-8.2)
[2020-05-22 13:24] LABS: Potassium 3.6 mmol/L (3.5-5.1)
[2020-05-22 13:36] VITALS: BP 143/97; PULSE 80; RESP 18; TEMP 98.1
--- NOTE | 2020-05-22 13:38 | XR ---
EXAMINATION TYPE: XR chest 2V DATE OF EXAM: 05/22/2020 COMPARISON: Chest x-ray 01/25/2001 HISTORY: Chest pain and shortness of breath TECHNIQUE: Frontal and lateral views of the chest are obtained. FINDINGS: There is no focal air space opacity, pleural effusion, or pneumothorax seen. The cardiac silhouette size is within normal limits. The osseous structures are intact, there is a slight spina l curvature. IMPRESSION: No acute cardiopulmonary process.
== END 2020-05-22 13:47 | disposition home or self-care (01) ==
LOC: EC 11:26
DX: J06.9 Acute upper respiratory infection, unspecified (principal); R09.1 Pleurisy; F32.9 Major depressive disorder, single episode, unspecified; Z93.3 Colostomy status; Z90.09 Acquired absence of other part of head and neck
CPT/HCPCS: 36415; 71046; 80053; 84484; 85025; 85379; 87635; 93005; 99285

== ENCOUNTER → 2021-03-18 | Outpatient (CLI) | payer BC, OTHER ==
[~2021-03-18] MED LIST: BAMLANIVIMAB (EUA) 700 MG, ETESEVIMAB (EUA) 1,400 MG in SODIUM CHLORIDE 0.9% 100 ML IVPB NR; SODIUM CHLORIDE 0.9% 50 ML IVPB ONE; SODIUM CHLORIDE 0.9% 500 ML 500 ML in EMPTY BAG 1 BAG IV PRN
[2021-03-18 13:46] VITALS: RESP 16; TEMP 97.6
[2021-03-18 14:09] VITALS: BP 123/83; PULSE 76
== END ==
LOC: PROCWHC3 13:08
PROVIDERS: ATTEND Internal Medicine
DX: U07.1 COVID-19 (principal); Z88.5 Allergy status to narcotic agent; Z88.0 Allergy status to penicillin; Z91.018 Allergy to other foods

== ENCOUNTER → 2021-12-25 | Outpatient (CLI) | payer BC ==
--- NOTE | 2021-12-25 15:58 | XR ---
EXAMINATION TYPE: XR ribs bilat w pa chest xray DATE OF EXAM: 12/25/2021 COMPARISON: NONE HISTORY: Pain TECHNIQUE: Frontal view of the chest and 4 views of the bilateral ribs are submitted. FINDINGS: Lungs are clear. Heart size normal. No pleural effusion or pneumothorax. No pneumonia. Osse ous structures intact. IMPRESSION: No acute displaced rib fracture.
== END | disposition home or self-care (01) ==
LOC: RADXRYALE 15:32
PROVIDERS: ATTEND Internal Medicine
DX: R07.9 Chest pain, unspecified (principal)
CPT/HCPCS: 71111

== ENCOUNTER 2021-12-26 19:40 | Emergency (ER) | payer BC ==
[2021-12-26 19:54] VITALS: RESP 18
[2021-12-26] MEDS ORDERED: ASPIRIN 81 MG PO STA (21:40)
[2021-12-26] MEDS ORDERED: SODIUM CHLORIDE 0.9% 1,000 ML IV STA (21:40)
[2021-12-26] MEDS ORDERED: KETOROLAC 15 MG/ML 1 ML VIAL IVP STA (21:40)
[2021-12-26 22:08] LABS: Basophils # (A) 0.1 k/uL (0-0.2); Basophils % (A) 1 %; Eosinophils # (A) 0.2 k/uL (0-0.7); Eosinophils % (A) 2 %; HCT 37.5 % (39.0-53.0); HGB 12.8 gm/dL (13.0-17.5); Lymphocytes # (A) 2.2 k/uL (1.0-4.8); Lymphocytes % (A) 28 %; MCHC 34.1 g/dL (31.0-37.0); MCV 87.9 fL (80.0-100.0); Mean Platelet Volume 7.9; Monocytes # (A) 0.5 k/uL (0-1.0); Monocytes % (A) 7 %; Neutrophils # (A) 4.9 k/uL (1.3-7.7); Neutrophils % (A) 61 %; Platelet Count 342 k/uL (150-450); RBC 4.27 m/uL (4.30-5.90); WBC 8.1 k/uL (3.8-10.6)
[2021-12-26 22:17] LABS: ALT 14 U/L (4-49); AST 21 U/L (17-59); African American GFR (CKD) >90 (>60 ml/min/1.73 sqM); Albumin 4.8 g/dL (3.5-5.0); Alkaline Phosphatase 58 U/L (38-126); Anion Gap 12 mmol/L; Blood Urea Nitrogen 15 mg/dL (9-20); Calcium 9.5 mg/dL (8.4-10.2); Carbon Dioxide 26 mmol/L (22-30); Chloride 100 mmol/L (98-107); Glucose 94 mg/dL (74-99); Non-African American GFR(CKD) >90 (>60 ml/min/1.73 sqM); Potassium 3.9 mmol/L (3.5-5.1); Sodium 138 mmol/L (137-145); Total Bilirubin 0.3 mg/dL (0.2-1.3); Total Protein 7.3 g/dL (6.3-8.2)
[2021-12-26 22:21] LABS: Partial Thromboplastin Time 26.2 sec (22.0-30.0); Prothrombin Time 11.1 sec (9.0-12.0)
--- NOTE | 2021-12-26 22:26 | XR ---
EXAMINATION TYPE: XR chest 2V DATE OF EXAM: 12/26/2021 COMPARISON: 12/25/2021 HISTORY: Chest pain TECHNIQUE: 2 views FINDINGS: Heart and mediastinum are normal. Lungs are clear. Diaphragm is normal. Bony thorax is inta ct. Pulmonary vascularity is normal. There are chest leads. IMPRESSION: Normal chest. No change.
--- NOTE | 2021-12-26 22:57 | ED ---
General Adult HPI - General Chief complaint: Chest Pain Stated complaint: Chest Pain/Revist Time Seen by Provider: 12/26/21 21:28 Source: patient, RN notes reviewed, old records reviewed Mode of arrival: ambulatory Limitations: no limitations - History of Present Illness Initial comments: Patient is a 31-year-old male with no significant past medical history presents emergency Department complaining of one-week of on again off again chest pain. He states it is left-sided and feels it pulling sensation. Worse when twisting to the right. Worse when turning his head to the right. Radiates along the rib space just inferior to his pectoral muscle and along the pectoral muscle with the sternum. States occasional shortness of breath as well. Did have Covid 3 weeks to 4 weeks ago. No residual complaints from that. No other acute complaints at this time. Symptoms of been ongoing for a week. No known palliative or provocative factors. Could not get in to see his PCP so he presents today for further evaluation. - Related Data Home Medications Medication Instructions Recorded Confirmed Calcium Carbonate [Calcium] 600 mg PO DAILY 12/26/21 12/26/21 Cetirizine HCl [Zyrtec] 10 mg PO DAILY 12/26/21 12/26/21 [place]-3/Dha/Epa/Fish Oil [Fish Oil 1 cap PO DAILY 12/26/21 12/26/21 1,000 mg Softgel] Allergies Allergy/AdvReac Type Severity Reaction Status Date / Time oxycodone Allergy Unknown Verified 12/26/21 22:46 Penicillins Allergy Anaphylaxis Verified 12/26/21 22:46 lactose AdvReac Nausea & Verified 12/26/21 22:46 Vomiting & Diarrhea Review of Systems ROS Statement: Those systems with pertinent positive or pertinent negative responses have been documented in the HPI. Review of Systems: CONST: Denies fever EYES: Denies blurry vision ENT: Denies nasal congestion C/V: Endorses chest pain RESP: Denies shortness of breath GI: Denies abdominal pain : Denies dysuria SKIN: Denies rash. MSK: Denies joint pain. NEURO: Denies headache ROS Other: All systems not noted in ROS Statement are negative. Past Medical History Additional Past Medical History / Comment(s): LACTOSE INTOLERANT,ULCERATIVE COLITIS-large bowel removed/colostomy, J pouch histoplasmosis, sinus issues. History of Any Multi-Drug Resistant Organisms: None Reported Past Surgical History: Adenoidectomy, Bowel Resection, Tonsillectomy Additional Past Surgical History / Comment(s): 02/08/15 bowel resection (large bowel removed) and colostomy placed, J pouch, multiple colonoscopies, CYSTS REMOVED FROM TAIL BONE Past Anesthesia/Blood Transfusion Reactions: No Reported Reaction Past Psychological History: Depression Smoking Status: Never smoker Past Alcohol Use History: Rare Past Drug Use History: None Reported - Past Family History Father Family Medical History: Cancer Additional Family Medical History / Comment(s): Father has prostate cancer. Mother Family Medical History: No Reported History General Exam - General Exam Comments Initial Comments: General: Appears in no acute distress. HEAD: Normal with no signs of head trauma. EYES: PERRLA, EOMI, conjunctiva normal, no discharge. ENT: Hearing grossly intact, normal oropharynx. RESPIRATORY: Clear breath sounds bilaterally. No wheezes, rales, or rhonchi. C/V: Regular rate and rhythm. S1 and S2 auscultated, no edema, peripheral pulses 2+ and intact throughout ABD: Abd is soft, nontender, nondistended EXT: Normal range of motion, no obvious deformity. Chest pain is reproducible on palpation along the inferior ribs based near his left pectoral muscle. SKIN: No rashes or lesions observed on exposed skin. NEURO: Alert and oriented 4. Limitations: no limitations Course Vital Signs 12/26/21 12/26/21 19:52 23:02 Temperature 97.9 F 98.0 F Pulse Rate 70 82 Respiratory 18 18 Rate Blood Pressure 162/96 131/80 O2 Sat by Pulse 99 98 Oximetry Medical Decision Making - Medical Decision Making Based on the patient's presentation and physical exam, I'm concerned for acute cardiopulmonary process for the patient's current symptoms. Cannot rule out PE at this time considering the recent COVID-19 infection. We'll obtain d-dimer as well as cardiac labs, EKG, chest x-ray. He will be given an aspirin as well as IV Toradol. I strongly suspect this is musculo skeletal chest wall pain. He was in agreement this plan. Vital signs within normal limits. EKG shows no signs of acute ischemia. Chest x-ray reveals no acute cardio pulmonary process. Lab for studies are remarkable for a chronic normocytic anemia with a hemoglobin of 12.8. D-dimer is within normal limits. Troponin is undetectable. Covid is negative. Remainder of labs are unremarkable. On reevaluation, patient's pain is improved. We did discuss the results of his workup. I believe it is safer to be discharged home. Patient's heart score is low at 0. Recommend close follow up with his PCP. He was in agreement this plan. Symptoms have been ongoing for one week. Strict return precautions were discussed. We discussed that is unlikely cardiac chest pain. Seems most likely a chest wall pain. I instructed the patient to follow up with their PCP in the next 1-3 days. I explained that the patient should return to the emergency department if they experience any worsening symptoms. Strict return precautions were discussed with the patient. The patient expressed understanding of these instructions. I answered all questions that the patient had. The patient was discharged home in good condition with their prescriptions and follow up information. - Lab Data Result diagrams: 12/26/21 21:52 12/26/21 21:52 Lab Results 12/26/21 12/26/21 12/26/21 Range/Units 21:52 21:52 21:52 WBC 8.1 (3.8-10.6) k/uL RBC 4.27 L (4.30-5.90) m/uL Hgb 12.8 L (13.0-17.5) gm/dL Hct 37.5 L (39.0-53.0) % MCV 87.9 (80.0-100.0) fL MCH 30.0 (25.0-35.0) pg MCHC 34.1 (31.0-37.0) g/dL RDW 12.0 (11.5-15.5) % Plt Count 342 (150-450) k/uL MPV 7.9 Neutrophils % 61 % Lymphocytes % 28 % Monocytes % 7 % Eosinophils % 2 % Basophils % 1 % Neutrophils # 4.9 (1.3-7.7) k/uL Lymphocytes # 2.2 (1.0-4.8) k/uL Monocytes # 0.5 (0-1.0) k/uL Eosinophils # 0.2 (0-0.7) k/uL Basophils # 0.1 (0-0.2) k/uL PT 11.1 (9.0-12.0) sec INR 1.0 (<1.2) APTT 26.2 (22.0-30.0) sec D-Dimer 0.23 (<0.60) mg/L FEU Sodium 138 (137-145) mmol/L Potassium 3.9 (3.5-5.1) mmol/L Chloride 100 (98-107) mmol/L Carbon Dioxide 26 (22-30) mmol/L Anion Gap 12 mmol/L BUN 15 (9-20) mg/dL Creatinine 0.86 (0.66-1.25) mg/dL Est GFR (CKD-EPI)AfAm >90 (>60 ml/min/1.73 sqM) Est GFR (CKD-EPI)NonAf >90 (>60 ml/min/1.73 sqM) Glucose 94 (74-99) mg/dL Calcium 9.5 (8.4-10.2) mg/dL Magnesium 2.0 (1.6-2.3) mg/dL Total Bilirubin 0.3 (0.2-1.3) mg/dL AST 21 (17-59) U/L ALT 14 (4-49) U/L Alkaline Phosphatase 58 (38-126) U/L Troponin I (0.000-0.034) ng/mL Total Protein 7.3 (6.3-8.2) g/dL Albumin 4.8 (3.5-5.0) g/dL Coronavirus (PCR) (Not Detectd) 12/26/21 12/26/21 Range/Units 21:52 21:52 WBC (3.8-10.6) k/uL RBC (4.30-5.90) m/uL Hgb (13.0-17.5) gm/dL Hct (39.0-53.0) % MCV (80.0-100.0) fL MCH (25.0-35.0) pg MCHC (31.0-37.0) g/dL RDW (11.5-15.5) % Plt Count (150-450) k/uL MPV Neutrophils % % Lymphocytes % % Monocytes % % Eosinophils % % Basophils % % Neutrophils # (1.3-7.7) k/uL Lymphocytes # (1.0-4.8) k/uL Monocytes # (0-1.0) k/uL Eosinophils # (0-0.7) k/uL Basophils # (0-0.2) k/uL PT (9.0-12.0) sec INR (<1.2) APTT (22.0-30.0) sec D-Dimer (<0.60) mg/L FEU Sodium (137-145) mmol/L Potassium (3.5-5.1) mmol/L Chloride (98-107) mmol/L Carbon Dioxide (22-30) mmol/L Anion Gap mmol/L BUN (9-20) mg/dL Creatinine (0.66-1.25) mg/dL Est GFR (CKD-EPI)AfAm (>60 ml/min/1.73 sqM) Est GFR (CKD-EPI)NonAf (>60 ml/min/1.73 sqM) Glucose (74-99) mg/dL Calcium (8.4-10.2) mg/dL Magnesium (1.6-2.3) mg/dL Total Bilirubin (0.2-1.3) mg/dL AST (17-59) U/L ALT (4-49) U/L Alkaline Phosphatase (38-126) U/L Troponin I <0.012 (0.000-0.034) ng/mL Total Protein (6.3-8.2) g/dL Albumin (3.5-5.0) g/dL Coronavirus (PCR) Not Detected (Not Detectd) - EKG Data -: EKG Interpreted by Me EKG Comments: 12-lead Electrocardiogram Interpretation Note EKG was reviewed and interpreted by myself. 12-lead ECG performed at 2009 is interpreted by me as revealing normal sinus rhythm at a rate of 77 beats per minute. Lake is normal. AR interval is 139 ms, QRS duration is 89 ms, QTc 394 ms.. There were no ST or T wave abnormalities to suggest myocardial ischemia or injury. R wave progression across the precordium was satisfactory. By my interpretation this EKG is non-diagnostic for acute ischemia. Disposition Clinical Impression: Chest pain, Chest wall pain Disposition: HOME SELF-CARE Condition: Good Instructions (If sedation given, give patient instructions): Chest Pain (ED) Is patient prescribed a controlled substance at d/c from ED?: No Referrals: Kia Romano MD [Primary Care Provider] - 1-2 days Time of Disposition: 22:50
[2021-12-26 23:03] VITALS: BP 131/80; PULSE 82; TEMP 98
== END 2021-12-26 23:03 | disposition home or self-care (01) ==
LOC: EC 19:40
DX: R07.89 Other chest pain (principal); Z20.822 Contact with and (suspected) exposure to COVID-19; Z88.0 Allergy status to penicillin; Z88.5 Allergy status to narcotic agent; Z88.8 Allergy status to other drugs, medicaments and biological substances
CPT/HCPCS: 36415; 93005; 85379; 80053; 83735; 84484; 85025; 85610; 85730; 87635; 71046; 96374; 96361; 99285; J1885

== ENCOUNTER 2022-03-24 09:55 | Emergency (ER) | payer BC ==
[2022-03-24 10:04] VITALS: TEMP 98.4
--- NOTE | 2022-03-24 10:19 | ED ---
General Adult HPI - General Source: patient, RN notes reviewed Mode of arrival: ambulatory Limitations: no limitations <LashellJair black - Last Filed: 03/24/22 10:17> - General Source: patient, RN notes reviewed Mode of arrival: ambulatory Limitations: no limitations <Peggy Spencer - Last Filed: 03/24/22 12:22> - General Chief complaint: Chest Pain Stated complaint: lt sided chest discomfort Time Seen by Provider: 03/24/22 10:08 - History of Present Illness Initial comments: 31-year-old male presents emergency Department chief complaint left-sided chest pain. Patient states that he had pain for last 2 weeks is not improved. He does admit that he's had some nasal congestion, cough. Patient states that his condition has improved. No reports of fever. No prior cardiac disease. Patient states that feels on the left side of his chest. Denies anything into his back. No history DVT or PE. (Jair Carcamo) Patient is a 31-year-old male presenting to the emergency room with his father with complaints of left-sided chest pain which is on the outer aspect of his pectoralis muscle which he states is a burning-like sensation that has been intermittent for approximately 2 weeks. He is unable to identify any aggravating or alleviating factors. He also reports intermittent left arm numbness and tingling but denies any numbness or tingling at this time. He was seen in December of last year for similar complaints workup at that time found no significant abnormalities and he was diagnosed with chest wall pain and discharged home in stable condition. He has no family history of CAD less than age 55, he is a nonsmoker and has a healthy BMI. He had COVID approximately 6 months ago; he also has a past medical history significant for ulcerative colitis but is not taking any medications for it on a regular basis. (Peggy Spencer) - Related Data Home Medications Medication Instructions Recorded Confirmed Calcium Carbonate [Calcium] 600 mg PO DAILY 12/26/21 12/26/21 Cetirizine HCl [Zyrtec] 10 mg PO DAILY 12/26/21 12/26/21 [place]-3/Dha/Epa/Fish Oil [Fish Oil 1 cap PO DAILY 12/26/21 12/26/21 1,000 mg Softgel] Allergies Allergy/AdvReac Type Severity Reaction Status Date / Time oxycodone Allergy Unknown Verified 03/24/22 10:04 Penicillins Allergy Anaphylaxis Verified 03/24/22 10:04 lactose AdvReac Nausea & Verified 03/24/22 10:04 Vomiting & Diarrhea Review of Systems ROS Other: All systems not noted in ROS Statement are negative. <Jair Carcamo - Last Filed: 03/24/22 10:17> ROS Other: All systems not noted in ROS Statement are negative. <Peggy Spencer - Last Filed: 03/24/22 12:22> ROS Statement: Those systems with pertinent positive or pertinent negative responses have been documented in the HPI. Past Medical History Additional Past Medical History / Comment(s): LACTOSE INTOLERANT,ULCERATIVE COLITIS-large bowel removed/colostomy, J pouch histoplasmosis, sinus issues. History of Any Multi-Drug Resistant Organisms: None Reported Past Surgical History: Adenoidectomy, Bowel Resection, Tonsillectomy Additional Past Surgical History / Comment(s): 02/08/15 bowel resection (large bowel removed) and colostomy placed, J pouch, multiple colonoscopies, CYSTS REMOVED FROM TAIL BONE Past Anesthesia/Blood Transfusion Reactions: No Reported Reaction Past Psychological History: Depression Smoking Status: Never smoker Past Alcohol Use History: Rare Past Drug Use History: None Reported - Past Family History Father Family Medical History: Cancer Additional Family Medical History / Comment(s): Father has prostate cancer. Mother Family Medical History: No Reported History <Jair Carcamo - Last Filed: 03/24/22 10:17> General Exam Limitations: no limitations <Jair Carcamo - Last Filed: 03/24/22 10:17> Limitations: no limitations <Peggy Spencer - Last Filed: 03/24/22 12:22> - General Exam Comments Initial Comments: GENERAL: No acute distress, well developed, well nourished. HEENT: Normocephalic, atraumatic. Pupils equal, round, reactive to light. Moist mucous membranes. LUNGS: No respiratory distress. Clear to auscultation, no adventitious sounds, no use of accessory muscles. HEART: Regular rate and rhythm without murmur, rub, or gallop. ABDOMEN: Normal bowel sounds. Soft, non-tender, non-distended. BACK: Normal inspection. EXTREMITIES: No edema. No tenderness. Moves all extremities. NEUROLOGIC: Alert & oriented x 3. CN II-XII grossly intact. PSYCHIATRIC: Normal affect and behavior. DERMATOLOGIC: Skin intact, without rashes or lesions noted. (Peggy Spencer) Course Vital Signs 03/24/22 10:02 Temperature 98.4 F Pulse Rate 81 Respiratory 20 Rate Blood Pressure 147/92 O2 Sat by Pulse 99 Oximetry Medical Decision Making - Lab Data Result diagrams: 03/24/22 10:53 03/24/22 10:53 - Radiology Data Radiology results: report reviewed, image reviewed <Peggy Spencer - Last Filed: 03/24/22 12:22> - Medical Decision Making Was pt. sent in by a medical professional or institution? @ -No Did you speak to anyone other than the patient for history? @ -Father Did you review nursing and triage notes? @ -Yes and agree Were old charts reviewed? @ -Previous emergency room visit and previous EKG Differential Diagnosis? @ -Differential Chest Pain: Stable Angina, Unstable Angina, STEMI, NSTEMI Aortic Dissection, Pneumothorax, Musculoskeletal, Esophageal Spasm GERD, Cholecystitis, Pancreatitis, Zoster, this is not meant to be an all-inclusive list. EKG interpreted by me (3pts min.)? @ -Normal sinus rhythm, ventricular rate 60 bpm, TN interval 140 ms, QRS duration 86 ms, QT/QTC 364/387 ms, PRT axes 56, 77, 47 X-rays interpreted by me (1pt min.)? @ -Chest x-ray without infiltrate, atelectasis or cardiomegaly. No acute cardiopulmonary pulmonary process. CT interpreted by me (1pt min.)? @ -None U/S interpreted by me (1pt. min.)? @ -None What testing was considered but not performed? (CT, X-rays, U/S, labs)? Why? @-None What meds were considered but not given? Why? @ -Aspirin consider not given into to likely atypical chest pain in nature without any significant cardiac risk factors. Pain is severe analgesics offered and declined. Did you discuss the management of the patient with other professionals? @ -No Did you reconcile home meds? @ -None Was smoking cessation discussed for >3mins.? @ -Not applicable, nonsmoker Was critical care preformed (if so, how long)? @ -None Were there social determinants of health that impacted care today? How? (Homelessness, low income, unemployed, alcoholism, drug addiction, transportation, low edu. Level, literacy, decrease access to med. care, [facility], rehab)? @ -No Was there de-escalation of care discussed even if they declined? (Discuss DNR or withdrawal of care, Hospice)? @ -No What co-morbidities impacted this encounter? (DM, HTN, Smoking, COPD, CAD, Cancer, CVA, Hep., AIDS, mental health diagnosis, sleep apnea, morbid obesity)? @ -None Was patient admitted / discharged? @ -Triage provider ordered chest pain care set orders including chest x-ray, CBC, CMP, troponin, coags, d-dimer, magnesium and EKG. Will also obtain 4-plex to evaluate for confluent influenza. Hemodynamically stable without any need for medication intervention including aspirin, analgesics or IV fluids. Encouraged use of [id number] Tylenol or Motrin as needed for pain. Chest x-ray with out abnormalities, EKG sinus rhythm, all labs without any abnormalities including CBC, CMP, troponin negative, d-dimer not elevated, magnesium level normal. Coags normal. For Plex negative for Covid and influenza. Discussed symptomatology follow-up with primary care provider. Will discharge home in stable condition. Undiagnosed new problem with uncertain prognosis? @ -None Drug Therapy requiring intensive monitoring for toxicity (Heparin, Nitro, Insulin, Cardizem)? @ -None Were any procedures done? @ -None Diagnosis/symptom? @ -[default] Acute, or Chronic, or Acute on Chronic? @ -Acute Uncomplicated (without systemic symptoms) or Complicated (systemic symptoms)? @ -Uncomplicated Side effects of treatment? @ -None Exacerbation, Progression, or Severe Exacerbation] @ -No Poses a threat to life or bodily function? @ -No Case discussed with Dr. Greer. (Peggy Spencer) - Lab Data Lab Results 03/24/22 03/24/22 03/24/22 Range/Units 10:53 10:53 10:53 WBC 7.1 (3.8-10.6) k/uL RBC 4.52 (4.30-5.90) m/uL Hgb 13.8 (13.0-17.5) gm/dL Hct 40.0 (39.0-53.0) % MCV 88.6 (80.0-100.0) fL MCH 30.6 (25.0-35.0) pg MCHC 34.5 (31.0-37.0) g/dL RDW 12.1 (11.5-15.5) % Plt Count 285 (150-450) k/uL MPV 7.8 Neutrophils % 71 % Lymphocytes % 20 % Monocytes % 5 % Eosinophils % 1 % Basophils % 1 % Neutrophils # 5.0 (1.3-7.7) k/uL Lymphocytes # 1.4 (1.0-4.8) k/uL Monocytes # 0.4 (0-1.0) k/uL Eosinophils # 0.1 (0-0.7) k/uL Basophils # 0.1 (0-0.2) k/uL PT 10.5 (9.0-12.0) sec INR 1.0 (<1.2) APTT 25.7 (22.0-30.0) sec D-Dimer 0.20 (<0.60) mg/L FEU Sodium 139 (137-145) mmol/L Potassium 4.7 (3.5-5.1) mmol/L Chloride 102 (98-107) mmol/L Carbon Dioxide 30 (22-30) mmol/L Anion Gap 7 mmol/L BUN 16 (9-20) mg/dL Creatinine 0.77 (0.66-1.25) mg/dL Est GFR (CKD-EPI)AfAm >90 (>60 ml/min/1.73 sqM) Est GFR (CKD-EPI)NonAf >90 (>60 ml/min/1.73 sqM) Glucose 91 (74-99) mg/dL Calcium 9.7 (8.4-10.2) mg/dL Magnesium 1.9 (1.6-2.3) mg/dL Total Bilirubin 0.5 (0.2-1.3) mg/dL AST 24 (17-59) U/L ALT 16 (4-49) U/L Alkaline Phosphatase 52 (38-126) U/L Troponin I (0.000-0.034) ng/mL Total Protein 7.9 (6.3-8.2) g/dL Albumin 4.9 (3.5-5.0) g/dL Influenza Type A (PCR) (Not Detectd) Influenza Type B (PCR) (Not Detectd) RSV (PCR) (Not Detectd) SARS-CoV-2 (PCR) (Not Detectd) 03/24/22 03/24/22 Range/Units 10:53 10:53 WBC (3.8-10.6) k/uL RBC (4.30-5.90) m/uL Hgb (13.0-17.5) gm/dL Hct (39.0-53.0) % MCV (80.0-100.0) fL MCH (25.0-35.0) pg MCHC (31.0-37.0) g/dL RDW (11.5-15.5) % Plt Count (150-450) k/uL MPV Neutrophils % % Lymphocytes % % Monocytes % % Eosinophils % % Basophils % % Neutrophils # (1.3-7.7) k/uL Lymphocytes # (1.0-4.8) k/uL Monocytes # (0-1.0) k/uL Eosinophils # (0-0.7) k/uL Basophils # (0-0.2) k/uL PT (9.0-12.0) sec INR (<1.2) APTT (22.0-30.0) sec D-Dimer (<0.60) mg/L FEU Sodium (137-145) mmol/L Potassium (3.5-5.1) mmol/L Chloride (98-107) mmol/L Carbon Dioxide (22-30) mmol/L Anion Gap mmol/L BUN (9-20) mg/dL Creatinine (0.66-1.25) mg/dL Est GFR (CKD-EPI)AfAm (>60 ml/min/1.73 sqM) Est GFR (CKD-EPI)NonAf (>60 ml/min/1.73 sqM) Glucose (74-99) mg/dL Calcium (8.4-10.2) mg/dL Magnesium (1.6-2.3) mg/dL Total Bilirubin (0.2-1.3) mg/dL AST (17-59) U/L ALT (4-49) U/L Alkaline Phosphatase (38-126) U/L Troponin I <0.012 (0.000-0.034) ng/mL Total Protein (6.3-8.2) g/dL Albumin (3.5-5.0) g/dL Influenza Type A (PCR) Not Detected (Not Detectd) Influenza Type B (PCR) Not Detected (Not Detectd) RSV (PCR) Not Detected (Not Detectd) SARS-CoV-2 (PCR) Not Detected (Not Detectd) Disposition <Jair Carcamo - Last Filed: 03/24/22 10:17> Is patient prescribed a controlled substance at d/c from ED?: No Time of Disposition: 12:18 <Peggy Spencer - Last Filed: 03/24/22 12:22> Clinical Impression: Left-sided chest wall pain Disposition: HOME SELF-CARE Condition: Stable Instructions (If sedation given, give patient instructions): Costochondritis (ED) Additional Instructions: Please utilize Tylenol or ibuprofen [id number] as needed for pain. Please follow-up with your primary care provider. Please return to the Emergency Department if symptoms worsen or any other concerns. Referrals: Kia Romano MD [Primary Care Provider] - 1-2 days
--- NOTE | 2022-03-24 10:54 | XR ---
EXAMINATION TYPE: XR chest 2V DATE OF EXAM: 03/24/2022 COMPARISON: Chest x-ray December 26, 2021 HISTORY: Chest pain. TECHNIQUE: Frontal and lateral views of the chest are obtained. FINDINGS: There is no suspicious focal air space opacity, pleural effusion, or pneumothorax seen. T he cardiac silhouette size is stable and within normal limits. The osseous structures are intact. IMPRESSION: No acute process. No significant change from prior.
[2022-03-24 11:07] LABS: Basophils # (A) 0.1 k/uL (0-0.2); Basophils % (A) 1 %; Eosinophils # (A) 0.1 k/uL (0-0.7); Eosinophils % (A) 1 %; HGB 13.8 gm/dL (13.0-17.5); Lymphocytes # (A) 1.4 k/uL (1.0-4.8); Lymphocytes % (A) 20 %; MCH 30.6 pg (25.0-35.0); MCHC 34.5 g/dL (31.0-37.0); MCV 88.6 fL (80.0-100.0); Mean Platelet Volume 7.8; Monocytes # (A) 0.4 k/uL (0-1.0); Monocytes % (A) 5 %; Neutrophils % (A) 71 %; Platelet Count 285 k/uL (150-450); RBC 4.52 m/uL (4.30-5.90); RDW 12.1 % (11.5-15.5); WBC 7.1 k/uL (3.8-10.6)
[2022-03-24 11:24] LABS: Partial Thromboplastin Time 25.7 sec (22.0-30.0); Prothrombin Time 10.5 sec (9.0-12.0)
[2022-03-24 11:30] LABS: ALT 16 U/L (4-49); AST 24 U/L (17-59); African American GFR (CKD) >90 (>60 ml/min/1.73 sqM); Albumin 4.9 g/dL (3.5-5.0); Alkaline Phosphatase 52 U/L (38-126); Anion Gap 7 mmol/L; Blood Urea Nitrogen 16 mg/dL (9-20); Calcium 9.7 mg/dL (8.4-10.2); Carbon Dioxide 30 mmol/L (22-30); Chloride 102 mmol/L (98-107); Glucose 91 mg/dL (74-99); Magnesium 1.9 mg/dL (1.6-2.3); Non-African American GFR(CKD) >90 (>60 ml/min/1.73 sqM); Potassium 4.7 mmol/L (3.5-5.1); Sodium 139 mmol/L (137-145); Total Bilirubin 0.5 mg/dL (0.2-1.3); Total Protein 7.9 g/dL (6.3-8.2)
[2022-03-24 12:32] VITALS: BP 129/85; PULSE 72; RESP 16
== END 2022-03-24 12:31 | disposition home or self-care (01) ==
LOC: EC 09:55
DX: R07.89 Other chest pain (principal); Z20.822 Contact with and (suspected) exposure to COVID-19; Z88.0 Allergy status to penicillin; Z88.8 Allergy status to other drugs, medicaments and biological substances; Z91.011 Allergy to milk products; Z90.89 Acquired absence of other organs
CPT/HCPCS: 36415; 71046; 80053; 83735; 84484; 85025; 85379; 85610; 85730; 87636; 93005; 99285

== ENCOUNTER 2023-12-15 08:17 | Day surgery (SDC) | payer BC ==
[2023-12-15] MEDS: LACTATED RINGERS 1,000 ML IV SCH (09:02)
[2023-12-15 09:05] VITALS: TEMP 97.5
[2023-12-15] MEDS: IV FLUID CONTINUATION 1,000 ML IV ONE (09:06)
[2023-12-15] MEDS ORDERED: PROPOFOL 10 MG/ML 20 ML VIAL IV ONE (09:51)
--- NOTE | 2023-12-15 10:03 | P.PCN ---
Date of Procedure: 12/15/23 Procedure(s) Performed: BRIEF HISTORY: Patient is a 33-year-old pleasant white male with history of ulcerative colitis diagnosed in 2000 and status post total proctocolectomy with J-pouch in 2017 at [facility]. Since her colectomy has been having multiple loose watery bowel movements daily a day to 20 but daily has been having small amount of blood and mucus in the stool. He is scheduled for pouchoscopy PROCEDURE PERFORMED: Pouchoscopy with biopsy PREOPERATIVE DIAGNOSIS: History of ulcerative colitis status post total colectomy with ileal pouch anal anastomosis in 2017, chronic diarrhea. IV sedation per Anesthesia. PROCEDURE: After informed consent was obtained, the patient, was brought into the endoscopy unit. IV sedation was administered by Anesthesia under continuous monitoring. Digital rectal examination revealed a small bump in the perianal area with erythematous mucosa but no obvious fistula identified.. Initially the Olympus CF-160 flexible video colonoscope was then inserted in the rectum, gradually advanced into the anus and the J-pouch was visualized. The scope was advanced 60 cm into the distal ileum. Careful examination was performed as well as gradually being withdrawn. The distal ileum appeared normal. At the J-pouch anastomosis there was erythema of the mucosa with a few erosions noted and this was biopsied. In the distal part of the fundus there was 1 cm polypoid appearing mucosa which was also biopsied. Patient tolerated the procedure well. IMPRESSION: Mild erythema with scattered erosions in the anastomosis at the J-pouch s/p multiple biopsies 1 cm polypoid appearing mucosa in the distal pouch just proximal to the dentate line s/p multiple biopsies. Distal ileum appeared normal Small raised area in the left perianal region but no evidence of obvious fistula RECOMMENDATIONS: Findings of this examination were discussed with the patient as well as his family. He was advised to follow with the biopsy cells. He will be seen in the office in 2 weeks. Based on the biopsy results which consider treatment for proctitis..
[2023-12-15 10:16] VITALS: RESP 18
[2023-12-15 10:27] VITALS: BP 134/87; PULSE 68
== END 2023-12-15 10:44 | disposition home or self-care (01) ==
LOC: ORWHC2ENDO 08:17
PROVIDERS: ATTEND Internal Medicine Gastroenterology
DX: K52.9 Noninfective gastroenteritis and colitis, unspecified
CPT/HCPCS: 44386; 88305; 88312; 88313

== ENCOUNTER → 2024-05-26 | Outpatient (CLI) | payer BC ==
--- NOTE | 2024-05-26 13:11 | US ---
EXAMINATION TYPE: US venous doppler duplex UE LT DATE OF EXAM: 05/26/2024 COMPARISON: NONE CLINICAL INDICATION: Male, 33 years old with history of M79.602 PAIN IN LEFT ARM; TECHNIQUE: Grayscale, color Doppler and spectral Doppler imaging of the upper extremity. SIDE PERFORMED: Left VESSELS IMAGED: IJV Subclavian Vein Axilla Vein Brachial Vein(s) Radial Paired Veins Ulnar Paired Veins Cephalic Vein* Basilic Vein* (*superficial vessels) FINDINGS: Left Arm: Negative for DVT Grayscale, color doppler, spectral doppler imaging performed of the deep veins of the upper extremiti es. IMPRESSION: No ultrasound evidence for acute deep or superficial venous thrombosis in the left upper extremity. [facility], , 05/26/2024 1:09 PM
== END | disposition home or self-care (01) ==
LOC: RADUSWWP 12:25
PROVIDERS: ATTEND Family Medicine
DX: M79.602 Pain in left arm (principal)

== ENCOUNTER 2024-07-19 09:22 | Day surgery (SDC) | payer BC ==
[2024-07-19 09:54] VITALS: TEMP 97.8
[2024-07-19] MEDS: IV FLUID CONTINUATION 1,000 ML IV ONE (09:55)
[2024-07-19] MEDS: LACTATED RINGERS 1,000 ML IV SCH (09:58)
[2024-07-19] MEDS ORDERED: LIDOCAINE 1% INJ 10MG/ML (20 ML MDV) ONE (10:20)
[2024-07-19] MEDS ORDERED: PROPOFOL 10 MG/ML 20 ML VIAL IV ONE (10:20)
--- NOTE | 2024-07-19 10:32 | P.PCN ---
Date of Procedure: 07/19/24 Procedure(s) Performed: BRIEF HISTORY: Patient is a 33-year-old, pleasant, white male scheduled for an upper endoscopy as a part evaluation of excessive belching and intermittent chest pain on and off for the last few months duration. He was treated with Protonix 40 mg twice daily with no help. Recently was started on Reglan 10 mg 4 times daily and symptoms are gradually improving. He is scheduled for an upper endoscopy to evaluate further. PROCEDURE PERFORMED: Esophagogastroduodenoscopy with biopsy. PREOPERATIVE DIAGNOSIS: Excessive belching and atypical chest pain. IV sedation per anesthesia. PROCEDURE: After informed consent was obtained, the patient was brought into the endoscopy unit. IV sedation was administered by Anesthesia under continuous monitoring. Initially the Olympus GIF-140 video endoscope was inserted into the mouth. Esophagus intubated without any difficulty. It was gradually advanced into the stomach and duodenum and carefully examined. The bulb and the second part of the duodenum appeared normal. Biopsies were done from the duodenum rule out celiac disease. The scope at this time was withdrawn to the stomach, adequately insufflated with air, and upon careful examination, mucosa of the antrum, and mild gastritis and biopsies were done from this area. Mucosa body, cardia and the fundus appeared normal. The scope was then withdrawn into the esophagus. The GE junction was located at 39 cm from the incisors. The esophagus appeared normal. There were no erosions or ulcerations seen, biopsies were done from the distal soft and the patient tolerated the procedure well. IMPRESSION: 1. Mild antral gastritis. 2. No evidence of esophagitis or peptic ulcer disease. RECOMMENDATIONS: The findings of this examination were discussed with the patient as well as his family. He was advised to continue with current medications and follow antireflux measures. Follow-up in the office in 2 to 3 weeks.
[2024-07-19 11:05] VITALS: BP 139/84; PULSE 78; RESP 16
== END 2024-07-19 11:31 | disposition home or self-care (01) ==
LOC: ORWHC2ENDO 09:22
PROVIDERS: ATTEND Internal Medicine Gastroenterology
DX: K29.50 Unspecified chronic gastritis without bleeding (principal); K21.00 Gastro-esophageal reflux disease with esophagitis, without bleeding; Z79.899 Other long term (current) drug therapy; F32.A Depression, unspecified; Z88.5 Allergy status to narcotic agent; Z88.0 Allergy status to penicillin; Z91.040 Latex allergy status
CPT/HCPCS: 88305; 88312; 43239; J2003; J2704

== ENCOUNTER 2024-08-26 00:38 | Observation (INO) | payer BC ==
--- NOTE | 2024-08-26 01:18 | ED ---
Nausea/Vomiting/Diarrhea HPI - General Chief complaint: Nausea/Vomiting/Diarrhea Stated complaint: abd pain Time Seen by Provider: 08/26/24 00:46 Source: patient, RN notes reviewed Mode of arrival: ambulatory Limitations: no limitations - History of Present Illness Initial comments: 33-year-old male with history of ulcerative colitis presents to the emergency department with complaints of diffuse abdominal pain with associated nausea, vomiting, diarrhea last 10+ hours. Patient states that he ate a bag of chips before going to bed and has been experiencing stated above symptoms over this timeframe. He states he has been having a difficult time keeping down food and liquids and is concerned that he is dehydrated. Denies hememesis, coffee-ground emesis, urinary complaints. history of parial sigmoidectomy secondary to ulcerative colitis. patient admits that he chronically has bloody stools and this is his baseline. - Related Data Home Medications Medication Instructions Recorded Confirmed Metoclopramide [Reglan] 10 mg PO ACHS 07/18/24 08/26/24 Allergies Allergy/AdvReac Type Severity Reaction Status Date / Time oxycodone Allergy Unknown Verified 08/26/24 09:06 Penicillins Allergy Anaphylaxis Verified 08/26/24 09:06 lactose AdvReac Nausea & Verified 08/26/24 09:06 Vomiting & Diarrhea Review of Systems ROS Statement: Those systems with pertinent positive or pertinent negative responses have been documented in the HPI. ROS Other: All systems not noted in ROS Statement are negative. Past Medical History Additional Past Medical History / Comment(s): LACTOSE INTOLERANT,ULCERATIVE COLITIS-large bowel removed/colostomy, J pouch histoplasmosis, sinus issues. History of Any Multi-Drug Resistant Organisms: None Reported Past Surgical History: Adenoidectomy, Bowel Resection, Tonsillectomy Additional Past Surgical History / Comment(s): 02/08/15 bowel resection (large bowel removed) and colostomy placed, J pouch, multiple colonoscopies, CYSTS REMOVED FROM TAIL BONE Past Anesthesia/Blood Transfusion Reactions: No Reported Reaction Past Psychological History: No Psychological Hx Reported Smoking Status: Never smoker Past Alcohol Use History: Rare Past Drug Use History: None Reported - Past Family History Father Family Medical History: Cancer Additional Family Medical History / Comment(s): Father has prostate cancer. Mother Family Medical History: No Reported History General Exam Limitations: no limitations ENT exam: Present: normal exam, mucous membranes moist Neck exam: Present: normal inspection. Absent: tenderness, meningismus, lymphadenopathy Respiratory exam: Present: normal lung sounds bilaterally. Absent: respiratory distress, wheezes, rales, rhonchi, stridor Cardiovascular Exam: Present: normal rhythm, tachycardia, normal heart sounds. Absent: regular rate, systolic murmur, diastolic murmur, rubs, gallop, clicks GI/Abdominal exam: Present: soft, tenderness (diffuse, right lower), normal bowel sounds. Absent: distended, guarding, rebound, rigid Extremities exam: Present: normal inspection, full ROM, normal capillary refill. Absent: tenderness, pedal edema, joint swelling, calf tenderness Back exam: Present: normal inspection. Absent: CVA tenderness (R), CVA tender ness (L) Skin exam: Present: warm, dry, intact, normal color. Absent: rash Course Vital Signs 08/26/24 08/26/24 08/26/24 00:39 01:31 02:39 Temperature 97.7 F Pulse Rate 150 H 121 H 108 H Respiratory 18 17 Rate Blood Pressure 99/65 106/79 O2 Sat by Pulse 99 96 Oximetry 08/26/24 08/26/24 08/26/24 04:00 05:48 09:20 Temperature 99.1 F 99.8 F H Pulse Rate 114 H 99 103 H Respiratory 17 17 19 Rate Blood Pressure 120/89 109/64 115/70 O2 Sat by Pulse 98 97 99 Oximetry 08/26/24 08/26/24 08/26/24 10:09 12:18 16:12 Temperature 100.1 F H 99.8 F H Pulse Rate 102 H 81 100 Respiratory 16 16 18 Rate Blood Pressure 109/67 118/68 112/67 O2 Sat by Pulse 96 97 97 Oximetry Medical Decision Making - Medical Decision Making Was pt. sent in by a medical professional or institution (, PA, SAIL FINISHER MACHINE, urgent ca re, hospital, or long-term...) When possible be specific @ -No Did you speak to anyone other than the patient for history (EMS, parent, family, police, friend...)? What history was obtained from this source @ -No Did you review nursing and triage notes (agree or disagree)? Why? @ -I reviewed and agree with nursing and triage notes Were old charts reviewed (outside hosp., previous admission, EMS record, old EKG, old radiological studies, urgent care reports/EKG's, long-term records)? Report findings @ -No old charts were reviewed Differential Diagnosis (chest pain, altered mental status, abdominal pain women, abdominal pain men, vaginal bleeding, weakness, fever, dyspnea, syncope, he adache, dizziness, GI bleed, back pain, seizure, CVA, palpatations, mental health, musculoskeletal)? @ -Differential Abdominal Pain Men: Appendicitis, cholecystitis, diverticulosis, ischemic bowel, pancreatitis, hepatitis, UTI, gastroenteritis, AAA, incarcerated hernia, bowel obstruction, constipation, inflammatory bowel, hepatitis, peptic ulcer disease, splenic infarction, perforated viscus, testicular torsion, this is not meant to be an all-inclusive list EKG interpreted by me (3pts min.). @ -Completed at 112 sinus rhythm with a ventricular rate of 122, QRS 82, QT 277, QTc 349. There are clear discernible P waves and this is a sinus rhythm. X-rays interpreted by me (1pt min.). @ -None done CT interpreted by me (1pt min.). @CT imaging of the abdomen pelvis with IV contrast reveals a partial sigmoidectomy with wall thickening at the anastomosis concerning for colitis U/S interpreted by me (1pt. min.). @ -None done What testing was considered but not performed or refused? (CT, X-rays, U/S, labs)? Why? @ -None What meds were considered but not given or refused? Why? @ -None Did you discuss the management of the patient with other professionals (professionals i.e. , PA, SAIL FINISHER MACHINE, lab, RT, psych nurse, social organization professor, gastroenterology physician, teacher, financial aid officer, case hardener)? Give summary @ -Dr. Lincoln for admission. Was smoking cessation discussed for >3mins.? @ -No Was critical care preformed (if so, how long)? @ -No Were there social determinants of health that impacted care today? How? (Homelessness, low income, unemployed, alcoholism, drug addiction, transportat ion, low edu. Level, literacy, decrease access to med. care, shelter, rehab)? @ -No Was there de-escalation of care discussed even if they declined (Discuss DNR or withdrawal of care, Hospice)? DNR status @ -No What co-morbidities impacted this encounter? (DM, HTN, Smoking, COPD, CAD, Cancer, CVA, ARF, Chemo, Hep., AIDS, mental health diagnosis, sleep apnea, morbid obesity)? @ -None Was patient admitted / discharged? Hospital course, mention meds given and route, prescriptions, significant lab abnormalities, going to OR and other pertinent info. @ -Admitted. 33-year-old male presents emergency room with complaints of abdominal pain, nausea, vomiting, diarrhea. Patient is tachycardic and hypotensive on arrival with a heart rate of 150 and blood pressure 99/65. Overall patient has mildly ill-appearing on examination bed noted to be diaphoretic and tachycardic. Patient has diffuse abdominal pain on palpation with equal bowel sounds heard in all quadrants. Patient is provided with 2 L fluid bolus with concern for dehydration in addition to Reglan for nausea control and Dilaudid for pain relief. Patient labs concerning for leukocytosis of 24 with left shift neutrophils of 22.8. Patient is noted to have an CARLITO likely secondary to hypovolemia and dehydration with a creatinine of 1.86 as compared to his baseline of 0.7. Additionally, patient's GFR is decreased to level 47 that is normally above 90. Patient has elevated specific gravity within his urine consistent with dehydration as well. CT imaging of the abdomen pelvis with IV contrast reveals no evidence of bowel obstruction. Patient will be admitted for continued fluid resuscitation with repeat lab work in the morning to monitor kidney function. Patient will be admitted to Dr. Damian. Case discussed with my attending, Dr. Mcmillan Undiagnosed new problem with uncertain prognosis? @ -No Drug Therapy requiring intensive monitoring for toxicity (Heparin, Nitro, Insulin, Cardizem)? @ -No Were any procedures done? @ -No Diagnosis/symptom? @ -dehydration, CARLITO Acute, or Chronic, or Acute on Chronic? @ -acute Uncomplicated (without systemic symptoms) or Complicated (systemic symptoms)? @ -complicated Side effects of treatment? @ -No Exacerbation, Progression, or Severe Exacerbation? @ -No Poses a threat to life or bodily function? How? (Chest pain, [place], [place], pneumonia, PE, COPD, DKA, ARF, appy, cholecystitis, CVA, Diverticulitis, Homicidal, Suicidal, threat to staff... and all critical care pts) @ -No - Lab Data Result diagrams: 08/26/24 01:31 08/26/24 01:31 Lab Results 08/26/24 08/26/24 08/26/24 Range/Units 01:31 01: 02:19 WBC 24.53 H (4.50-10.00) 10*3/uL RBC 5.21 (4.40-5.60) 10*6/uL Hgb 14.8 (13.0-17.0) g/dL Hct 44.1 (39.6-50.0) % MCV 84.6 (80.0-97.0) fL MCH 28.4 (27.0-32.0) pg MCHC 33.6 (32.0-37.0) g/dL Plt Count 348 (140-440) 10*3/uL MPV 9.4 L (9.5-12.2) fL Immature Gran % (Auto) 0.5 % Neutrophils % 93.0 % Lymphocytes % 1.8 % Monocytes % 4.2 % Eosinophils % 0.0 % Basophils % 0.5 % Immature Gran # 0.13 H (0.00-0.04) 10*3/uL Neutrophils # 22.82 H (1.80-7.70) 10*3/uL Lymphocytes # 0.43 L (0.90-5.00) 10*3/uL Monocytes # 1.02 H (0.20-1.00) 10*3/uL Eosinophils # 0.01 L (0.04-0.35) 10*3/uL Basophils # 0.12 H (0.00-0.10) 10*3/uL Sodium 137 (137-145) mmol/L Potassium 4.9 (3.5-5.1) mmol/L Chloride 94 L (98-107) mmol/L Carbon Dioxide 26 (22-30) mmol/L Anion Gap 17 mmol/L BUN 19 (9-20) mg/dL Creatinine 1.86 H (0.66-1.25) mg/dL Est GFR (CKD-EPI)AfAm 54 (>60 ml/min/1.73 sqM) Est GFR (CKD-EPI)NonAf 47 (>60 ml/min/1.73 sqM) Glucose 163 H (74-99) mg/dL Plasma Lactic Acid [place] 1.5 (0.7-2.0) mmol/L Calcium 11.0 H (8.4-10.2) mg/dL Magnesium 1.5 L (1.6-2.3) mg/dL Total Bilirubin 1.1 (0.2-1.3) mg/dL AST 29 (17-59) U/L ALT 24 (4-49) U/L Alkaline Phosphatase 75 (38-126) U/L Total Protein 9.1 H (6.3-8.2) g/dL Albumin 5.5 H (3.5-5.0) g/dL Lipase 40 (23-300) U/L Urine Color Urine Appearance (Clear) Urine pH (5.0-8.0) Ur Specific [place] (1.001-1.035) Urine Protein (Negative) Urine Glucose (UA) (Negative) Urine Ketones (Negative) Urine Blood (Negative) Urine Nitrite (Negative) Urine Bilirubin (Negative) Urine Urobilinogen (<2.0) mg/dL Ur Leukocyte Esterase (Negative) 08/26/24 Range/Units 02:35 WBC (4.50-10.00) 10*3/uL RBC (4.40-5.60) 10*6/uL Hgb (13.0-17.0) g/dL Hct (39.6-50.0) % MCV (80.0-97.0) fL MCH (27.0-32.0) pg MCHC (32.0-37.0) g/dL Plt Count (140-440) 10*3/uL MPV (9.5-12.2) fL Immature Gran % (Auto) % Neutrophils % % Lymphocytes % % Monocytes % % Eosinophils % % Basophils % % Immature Gran # (0.00-0.04) 10*3/uL Neutrophils # (1.80-7.70) 10*3/uL Lymphocytes # (0.90-5.00) 10*3/uL Monocytes # (0.20-1.00) 10*3/uL Eosinophils # (0.04-0.35) 10*3/uL Basophils # (0.00-0.10) 10*3/uL Sodium (137-145) mmol/L Potassium (3.5-5.1) mmol/L Chloride (98-107) mmol/L Carbon Dioxide (22-30) mmol/L Anion Gap mmol/L BUN (9-20) mg/dL Creatinine (0.66-1.25) mg/dL Est GFR (CKD-EPI)AfAm (>60 ml/min/1.73 sqM) Est GFR (CKD-EPI)NonAf (>60 ml/min/1.73 sqM) Glucose (74-99) mg/dL Plasma Lactic Acid [place] (0.7-2.0) mmol/L Calcium (8.4-10.2) mg/dL Magnesium (1.6-2.3) mg/dL Total Bilirubin (0.2-1.3) mg/dL AST (17-59) U/L ALT (4-49) U/L Alkaline Phosphatase (38-126) U/L Total Protein (6.3-8.2) g/dL Albumin (3.5-5.0) g/dL Lipase (23-300) U/L Urine Color Yellow Urine Appearance Clear (Clear) Urine pH 7.0 (5.0-8.0) Ur Specific [place] >1.050 H (1.001-1.035) Urine Protein Trace H (Negative) Urine Glucose (UA) Negative (Negative) Urine Ketones Negative (Negative) Urine Blood Negative (Negative) Urine Nitrite Negative (Negative) Urine Bilirubin Negative (Negative) Urine Urobilinogen <2.0 (<2.0) mg/dL Ur Leukocyte Esterase Negative (Negative) Disposition Clinical Impression: CARLITO (acute kidney injury), Dehydration Disposition: ADMITTED IP TO THIS [facility] Condition: Stable Decision to Admit Reason: Admit from EC Decision Date: 08/26/24
[2024-08-26] MEDS: HYDROmorphone 0.5 MG/0.5 ML SYRINGE IVP STA (01:25)
[2024-08-26] MEDS: METOCLOPRAMIDE 5 MG/ML 2 ML VIAL IVP STA (01:26)
[2024-08-26] MEDS: SODIUM CHLORIDE 0.9% 2,000 ML IV STA (01:28)
[2024-08-26 01:48] LABS: Basophils # (A) 0.12 10*3/uL (0.00-0.10); Basophils % (A) 0.5 %; Eosinophils # (A) 0.01 10*3/uL (0.04-0.35); HCT 44.1 % (39.6-50.0); HGB 14.8 g/dL (13.0-17.0); Lymphocytes # (A) 0.43 10*3/uL (0.90-5.00); Lymphocytes % (A) 1.8 %; MCH 28.4 pg (27.0-32.0); MCHC 33.6 g/dL (32.0-37.0); MCV 84.6 fL (80.0-97.0); Mean Platelet Volume 9.4 fL (9.5-12.2); Monocytes # (A) 1.02 10*3/uL (0.20-1.00); Monocytes % (A) 4.2 %; Neutrophils # (A) 22.82 10*3/uL (1.80-7.70); Platelet Count 348 10*3/uL (140-440); RBC 5.21 10*6/uL (4.40-5.60); WBC 24.53 10*3/uL (4.50-10.00)
[2024-08-26 02:01] LABS: ALT 24 U/L (4-49); AST 29 U/L (17-59); African American GFR (CKD) 54 (>60 ml/min/1.73 sqM); Albumin 5.5 g/dL (3.5-5.0); Alkaline Phosphatase 75 U/L (38-126); Anion Gap 17 mmol/L; Blood Urea Nitrogen 19 mg/dL (9-20); Carbon Dioxide 26 mmol/L (22-30); Chloride 94 mmol/L (98-107); Glucose 163 mg/dL (74-99); Lipase 40 U/L (23-300); Magnesium 1.5 mg/dL (1.6-2.3); Non-African American GFR(CKD) 47 (>60 ml/min/1.73 sqM); Potassium 4.9 mmol/L (3.5-5.1); Sodium 137 mmol/L (137-145); Total Bilirubin 1.1 mg/dL (0.2-1.3); Total Protein 9.1 g/dL (6.3-8.2)
--- NOTE | 2024-08-26 02:40 | CT ---
EXAM: CT Abdomen and Pelvis With Intravenous Contrast CLINICAL HISTORY: ITS.REASON CT Reason: lower ab pain, N/V/D, hx colon resection TECHNIQUE: Axial computed tomography images of the abdomen and pelvis with intravenous contrast. CTDI is 11.4 mGy and DLP is 526.7 mGy-cm. This CT exam was performed using one or more of the following dose reduction techniques: automated exposure control, adjustment of the mA and/or kV according to patient size, and/or use of iterative reconstruction technique. COMPARISON: No relevant prior studies available. FINDINGS: Lung bases: Unremarkable. No mass. No consolidation. ABDOMEN: Liver: Multiple hepatic cysts. Gallbladder and bile ducts: Unremarkable. No calcified stones. No ductal dilation. Pancreas: Unremarkable. No mass. No ductal dilation. Spleen: Splenomegaly, measuring up to 13.4 cm. Adrenals: Unremarkable. No mass. Kidneys and ureters: Unremarkable. No solid mass. No hydronephrosis. Stomach and bowel: Partial sigmoidectomy. Liquid stool in the colon, correlate for diarrheal disease. Wall thickening at the anastomosis, concerning for colitis. No obstruction. PELVIS: Appendix: No findings to suggest acute appendicitis. Bladder: Unremarkable. No mass. Reproductive: Unremarkable as visualized. ABDOMEN and PELVIS: Intraperitoneal space: Unremarkable. No free air. No significant fluid collection. Bones/joints: No acute fracture. No dislocation. Soft tissues: Unremarkable. Vasculature: Unremarkable. No abdominal aortic aneurysm. Lymph nodes: Unremarkable. No enlarged lymph nodes. IMPRESSION: Partial sigmoidectomy. Liquid stool in the colon, correlate for diarrheal disease. Wall thickening at the anastomosis, concerning for colitis.
[2024-08-26 03:17] LABS: Appearance,Urine Clear (Clear); Bilirubin,Urine Negative (Negative); Blood,Urine Negative (Negative); Color,Urine Yellow; Glucose,Urine (UA) Negative (Negative); Ketones,Urine Negative (Negative); Leukocyte Esterase,Urine Negative (Negative); Nitrite,Urine Negative (Negative); Protein,Urine Trace (Negative); Urobilinogen,Urine <2.0 mg/dL (<2.0)
[2024-08-26 03:22] LABS: Specific Gravity,Urine >1.050 (1.001-1.035)
[2024-08-26] MEDS ORDERED: ONDANSETRON 4 MG/2 ML VIAL IVP PRN (03:23)
[2024-08-26] MEDS ORDERED: NALOXONE 0.4 MG/ML 1 ML VIAL IV PRN (03:23)
[2024-08-26] MEDS: MAGNESIUM OXIDE 400 MG TAB PO STA (03:55)
[2024-08-26] MEDS: SODIUM CHLORIDE 0.9% 1,000 ML IV SCH (03:56)
[2024-08-26] MEDS: METOCLOPRAMIDE 5 MG/ML 2 ML VIAL IVP PRN (05:47)
[2024-08-26] MEDS: ACETAMINOPHEN TAB 325 MG TAB PO PRN (09:22)
[2024-08-26] MEDS: PANTOPRAZOLE 40 MG/10 ML VIAL IV SCH (09:22)
[2024-08-26] MEDS: metroNIDAZOLE-NS PMX 500 MG in SALINE 1 100ML.BAG IVPB SCH (12:37)
[2024-08-26] MEDS: MORPHINE SULFATE 4 MG/ML SYRINGE IV PRN (12:40)
--- NOTE | 2024-08-26 13:51 | HP ---
HISTORY AND PHYSICAL HISTORY OF PRESENT ILLNESS: 33-year-old white male came to the hospital with nausea, vomiting, diarrhea 10+ hours. keeping down liquids and foods, is dehydrated, has hematemesis, coffee-grounds emesis, urinary complaints, history of partial baseline. HOME MEDICATIONS: 1. Zyrtec 10 daily. 2. Calcium carbonate. 3. [place] acids. 4. a.c. and h.s. 5. Multivitamin daily. ALLERGIES: Oxycodone, penicillin, . PAST MEDICAL HISTORY: As mentioned, histoplasmosis in the past, large bowel, removed, colostomy, lactose intolerance, ulcerative colitis. SURGICAL HISTORY: Adenoidectomy tonsillectomy, bowel resection, colostomy removed, multiple colonoscopies, cyst removed. PAST FAMILY HISTORY: Father, cancer of prostate. Mother, negative. PHYSICAL EXAMINATION: SKIN: Dry skin turgor. HEENT: Dry mucous membranes. GENERAL: No acute distress. CARDIOVASCULAR: S1 and S2. LUNGS: Clear. GI: Soft. HEMATOLOGY: Negative Homans. GI: Increased bowel sounds, diffuse minimal guarding. VITAL SIGNS: Temp 97.7, pulse 108 to 150, respiratory rate 16 to 18, blood pressure 99- 106/65-79, O2 96 to 99. LABORATORY DATA: White count is 24.53, hemoglobin is 14.8, BUN is 19, creatinine 1.86. ASSESSMENT AND PLAN: 1. Acute kidney injury, rehydration. 2. Leukocytosis, secondary to abdominal infection. Get consult with Dr. Delgado. Stool cultures here are negative. Rehydrate. Prognosis guarded. Start some IV Flagyl. Surgical consult. MMODL / IJN: [id number] /
--- NOTE | 2024-08-26 19:03 | P.CONS ---
History of Present Illness - Reason for Consult Consult date: 08/26/24 Leukocytosis Requesting physician: Inderjit Damian - Chief Complaint Nausea vomiting diarrhea x 1 day - History of Present Illness Patient is a 33-year-old male with a past medical history significant for ulcerative colitis in this patient who status post subtotal colectomy patient is currently not on any immunomodulating agents presenting to the hospital concerning for nausea vomiting and diarrhea that started the day of presentation to hospital patient symptoms started with diarrhea with multiple episodes of stools denies having any blood mentioning is mostly greenish with associated crampy abdominal pain moderate intensity and 8 episodes of nausea vomiting patient denies high-grade fever at home and the patient was afebrile on presentation to the hospital subsequently spike fever of 100.1 F this morning patient was also tachycardic but not hypotensive or hypoxic he did have white count 24.53 with a left shift creatinine is 1.86 electrolytes are normal liver enzymes are normal urine has been negative patient did have a abdominal pelvis CT patient mention partial sigmoidectomy liquid stool in the colon correlate for diarrheal disease wall thickening at the anastomosis concerning for colitis patient was started on Flagyl infectious he was consulted for further management of antibiotic therapy Review of Systems Positive point and negatives has been mentioned in the HPI, complete review of systems was performed and all other systems are negative Past Medical History Additional Past Medical History / Comment(s): LACTOSE INTOLERANT,ULCERATIVE COLITIS-large bowel removed/colostomy, J pouch histoplasmosis, sinus issues. History of Any Multi-Drug Resistant Organisms: None Reported Past Surgical History: Adenoidectomy, Bowel Resection, Tonsillectomy Additional Past Surgical History / Comment(s): 02/08/15 bowel resection (large bowel removed) and colostomy placed, J pouch, multiple colonoscopies, CYSTS REMOVED FROM TAIL BONE Past Anesthesia/Blood Transfusion Reactions: No Reported Reaction Past Psychological History: No Psychological Hx Reported Smoking Status: Never smoker Past Alcohol Use History: Rare Past Drug Use History: None Reported - Past Family History Father Family Medical History: Cancer Additional Family Medical History / Comment(s): Father has prostate cancer. Mother Family Medical History: No Reported History Medications and Allergies Home Medications Medication Instructions Recorded Confirmed Type Metoclopramide [Reglan] 10 mg PO ACHS 07/18/24 08/26/24 History Allergies Allergy/AdvReac Type Severity Reaction Status Date / Time oxycodone Allergy Unknown Verified 08/26/24 09:06 Penicillins Allergy Anaphylaxis Verified 08/26/24 09:06 lactose AdvReac Nausea & Verified 08/26/24 09:06 Vomiting & Diarrhea Physical Exam Vitals: Vital Signs Temp Pulse Resp BP Pulse Ox 08/26/24 10:09 100.1 F H 102 H 16 109/67 96 08/26/24 09:20 99.8 F H 103 H 19 115/70 99 08/26/24 05:48 99.1 F 99 17 109/64 97 08/26/24 04:00 114 H 17 120/89 98 08/26/24 02:39 108 H 08/26/24 01:31 121 H 17 106/79 96 08/26/24 00:39 97.7 F 150 H 18 99/65 99 Intake and Output 08/25/24 08/26/24 08/26/24 22:59 06:59 14:59 Other: Weight 58.967 kg GENERAL DESCRIPTION: Middle-age male lying in bed, no distress. No tachypnea or accessory muscle of respiration use. HEENT: Shows Pallor , no scleral icterus. Oral mucous membrane is dry. NECK: Trachea central, no thyromegaly. LUNGS: Unlabored breathing. Clear to auscultation anteriorly. No wheeze or crackle. HEART: S1, S2, regular rate and rhythm. No loud murmur ABDOMEN: Soft, no tenderness , EXTREMITIES: No edema of feet. SKIN: No rash, no masses palpable. NEUROLOGICAL: The patient is awake, alert, oriented x3, mood and affect normal. Results CBC & Chem 7: 08/26/24 01:31 08/26/24 01:31 Labs: Abnormal Lab Results - Last 24 Hours (Table) 08/26/24 08/26/24 08/26/24 Range/Units 01:31 01:31 02:35 WBC 24.53 H (4.50-10.00) 10*3/uL MPV 9.4 L (9.5-12.2) fL Immature Gran # 0.13 H (0.00-0.04) 10*3/uL Neutrophils # 22.82 H (1.80-7.70) 10*3/uL Lymphocytes # 0.43 L (0.90-5.00) 10*3/uL Monocytes # 1.02 H (0.20-1.00) 10*3/uL Eosinophils # 0.01 L (0.04-0.35) 10*3/uL Basophils # 0.12 H (0.00-0.10) 10*3/uL Chloride 94 L (98-107) mmol/L Creatinine 1.86 H (0.66-1.25) mg/dL Glucose 163 H (74-99) mg/dL Calcium 11.0 H (8.4-10.2) mg/dL Magnesium 1.5 L (1.6-2.3) mg/dL Total Protein 9.1 H (6.3-8.2) g/dL Albumin 5.5 H (3.5-5.0) g/dL Ur Specific [place] >1.050 H (1.001-1.035) Urine Protein Trace H (Negative) Assessment and Plan (1) Colitis Current Visit: Yes Status: Acute Code(s): K52.9 - NONINFECTIVE GASTROENTERITIS AND COLITIS, UNSPECIFIED SNOMED Code(s): 26598659 (2) Leukocytosis Current Visit: Yes Status: Acute Code(s): D72.829 - ELEVATED WHITE BLOOD CELL COUNT, UNSPECIFIED SNOMED Code(s): 459971072 (3) Penicillin allergy Current Visit: Yes Status: Acute Code(s): Z88.0 - ALLERGY STATUS TO PENICILLIN SNOMED Code(s): 31548544 Plan: 1patient presented hospital with acute nausea vomiting abdominal pain and diarrhea in this patient who did have a history of ulcerative colitis status post subtotal colectomy now with evidence of some inflammation at the anastomosis site/colitis likely etiology infectious and will need to cover for the enteric gram-negative with a likely pathogen stool for C. difficile was negative 2patient with a penicillin allergy that would limit the number of antibiotics safe to use 3obtain stool culture 4we will continue patient on Flagyl however will add Rocephin 2 g daily to cover for the [place] negative while waiting for the culture to finalize Multiple question concern answered We will follow on clinical condition and cultures to further adjust medication if needed Thank you for this consultation we will follow the patient along with you Dictation was produced using [employer] dictation software. please excuse any grammatical, word or spelling errors. Time with Patient: Greater than 30
[2024-08-26] MEDS: methylPREDNISolone SOD SUCCI 40 MG/ML 1 ML VIAL IV SCH (20:30)
[2024-08-27 08:00] LABS: Basophils # (A) 0.04 10*3/uL (0.00-0.10); Basophils % (A) 0.7 %; Eosinophils # (A) 0.15 10*3/uL (0.04-0.35); Eosinophils % (A) 2.6 %; HCT 32.3 % (39.6-50.0); Lymphocytes # (A) 0.67 10*3/uL (0.90-5.00); Lymphocytes % (A) 11.7 %; MCH 28.9 pg (27.0-32.0); MCHC 32.8 g/dL (32.0-37.0); Mean Platelet Volume 9.2 fL (9.5-12.2); Monocytes # (A) 0.78 10*3/uL (0.20-1.00); Monocytes % (A) 13.6 %; Neutrophils # (A) 4.09 10*3/uL (1.80-7.70); Neutrophils % (A) 71.2 %; Platelet Count 193 10*3/uL (140-440); RBC 3.67 10*6/uL (4.40-5.60); RDW 13.3 % (11.5-14.5); WBC 5.74 10*3/uL (4.50-10.00)
[2024-08-27 08:05] LABS: HGB 10.6 g/dL (13.0-17.0)
[2024-08-27 08:06] VITALS: RESP 16
[2024-08-27 08:20] LABS: ALT 16 U/L (4-49); AST 26 U/L (17-59); African American GFR (CKD) >90 (>60 ml/min/1.73 sqM); Albumin 3.4 g/dL (3.5-5.0); Albumin/Globulin Ratio 1.4; Alkaline Phosphatase 43 U/L (38-126); Anion Gap 8 mmol/L; Blood Urea Nitrogen 13 mg/dL (9-20); Calcium 8.7 mg/dL (8.4-10.2); Carbon Dioxide 25 mmol/L (22-30); Chloride 104 mmol/L (98-107); Globulin 2.4 g/dL; Glucose 78 mg/dL (74-99); Non-African American GFR(CKD) >90 (>60 ml/min/1.73 sqM); Potassium 3.9 mmol/L (3.5-5.1); Sodium 137 mmol/L (137-145); Total Bilirubin 0.5 mg/dL (0.2-1.3); Total Protein 5.8 g/dL (6.3-8.2)
--- NOTE | 2024-08-27 09:41 | PN ---
PROGRESS NOTE SUBJECTIVE: Remains on antibiotics for colitis, Rocephin, Flagyl, and Solu-Medrol. Stool cultures pending. His white count is back down to normal. Hemoglobin is 10.6 versus 14.6 yesterday. Electrolytes, white count went from 24 K down to 5 K. His UA is negative. C diff is negative. Acute colitis, most improved. Possibly go home today or tomorrow. OBJECTIVE: CARDIOVASCULAR: S1, S2. LUNGS: Transmitted upper sounds. ABDOMEN: He has decreased bowel sounds x4. ASSESSMENT AND PLAN: Prognosis guarded. Continue treatment for colitis possibly go home next day 24 to 48 hours. MMODL / IJN: [id number] /
--- NOTE | 2024-08-27 10:40 | P.GSCN ---
History of Present Illness Consult date: 08/27/24 History of present illness: 33-year-old male presented to the emergency department with complaint of nausea, vomiting and diarrhea that started on the day of his presentation. He has known history of ulcerative colitis and did have subtotal colectomy performed 10 years ago at the [facility]. He is not currently on any immunomodulating agents. He follows with GI, Dr. Beck. He states that since his arrival to the emergency department he is feeling better. He has been on IV fluid hydration along with antibiotics. ID is following. He denies any blood in his stool. CT of the abdomen and pelvis was performed showing some thickening around the prev ious anastomosis concerning for colitis. Review of Systems All systems: negative Past Medical History Additional Past Medical History / Comment(s): LACTOSE INTOLERANT,ULCERATIVE COLITIS-large bowel removed/colostomy, J pouch histoplasmosis, sinus issues. History of Any Multi-Drug Resistant Organisms: None Reported Past Surgical History: Adenoidectomy, Bowel Resection, Tonsillectomy Additional Past Surgical History / Comment(s): 02/08/15 bowel resection (large bowel removed) and colostomy placed, J pouch, multiple colonoscopies, CYSTS SRUTHI ESTRELLA FROM TAIL BONE Past Anesthesia/Blood Transfusion Reactions: No Reported Reaction Past Psychological History: No Psychological Hx Reported Additional Psychological History / Comment(s): Pt states he has had problems with depression, when his sister comitted suicide. He has been on meds for depression in the past but no longer. States his depression is no longer a problem. He resides with his girlfriend and 2 yr old child. He is independent. Smoking Status: Never smoker Past Alcohol Use History: Rare Past Drug Use History: None Reported - Past Family History Father Family Medical History: Cancer Additional Family Medical History / Comment(s): Father has prostate cancer. Mother Family Medical History: No Reported History Medications and Allergies Home Medications Medication Instructions Recorded Confirmed Type Metoclopramide [Reglan] 10 mg PO ACHS 07/18/24 08/26/24 History Allergies Allergy/AdvReac Type Severity Reaction Status Date / Time oxycodone Allergy Unknown Verified 08/26/24 09:06 Penicillins Allergy Anaphylaxis Verified 08/26/24 09:06 lactose AdvReac Nausea & Verified 08/26/24 09:06 Vomiting & Diarrhea Surgical - Exam Osteopathic Statement: *. No significant issues noted on an osteopathic structural exam other than those noted in the History and Physical/Consult. Vital Signs Temp Pulse Resp BP Pulse Ox 97.7 F 150 H 18 99/65 99 08/26/24 00:39 08/26/24 00:39 08/26/24 00:39 08/26/24 00:39 08/26/24 00:39 - General well developed, well nourished - Eyes normal ocular movement - ENT no hearing loss - Neck trachea midline - Respiratory normal respiratory effort - Abdomen Abdomen: soft, non tender - Psychiatric oriented to time, oriented to person, oriented to place Results - Labs 08/27/24 07:36 08/27/24 07:36 Abnormal Lab Results - Last 24 Hours (Table) 08/27/24 08/27/24 Range/Units 07:36 07:36 RBC 3.67 L (4.40-5.60) 10*6/uL Hgb 10.6 L D (13.0-17.0) g/dL Hct 32.3 L (39.6-50.0) % MPV 9.2 L (9.5-12.2) fL Lymphocytes # 0.67 L (0.90-5.00) 10*3/uL Total Protein 5.8 L (6.3-8.2) g/dL Albumin 3.4 L (3.5-5.0) g/dL Diabetes panel 08/27/24 Range/Units 07:36 Sodium 137 (137-145) mmol/L Potassium 3.9 (3.5-5.1) mmol/L Chloride 104 (98-107) mmol/L Carbon Dioxide 25 (22-30) mmol/L BUN 13 (9-20) mg/dL Creatinine 0.87 (0.66-1.25) mg/dL Glucose 78 (74-99) mg/dL Calcium 8.7 (8.4-10.2) mg/dL AST 26 (17-59) U/L ALT 16 (4-49) U/L Alkaline Phosphatase 43 (38-126) U/L Total Protein 5.8 L (6.3-8.2) g/dL Albumin 3.4 L (3.5-5.0) g/dL Calcium panel 08/27/24 Range/Units 07:36 Calcium 8.7 (8.4-10.2) mg/dL Albumin 3.4 L (3.5-5.0) g/dL Pituitary panel 08/27/24 Range/Units 07:36 Sodium 137 (137-145) mmol/L Potassium 3.9 (3.5-5.1) mmol/L Chloride 104 (98-107) mmol/L Carbon Dioxide 25 (22-30) mmol/L BUN 13 (9-20) mg/dL Creatinine 0.87 (0.66-1.25) mg/dL Glucose 78 (74-99) mg/dL Calcium 8.7 (8.4-10.2) mg/dL Adrenal panel 08/27/24 Range/Units 07:36 Sodium 137 (137-145) mmol/L Potassium 3.9 (3.5-5.1) mmol/L Chloride 104 (98-107) mmol/L Carbon Dioxide 25 (22-30) mmol/L BUN 13 (9-20) mg/dL Creatinine 0.87 (0.66-1.25) mg/dL Glucose 78 (74-99) mg/dL Calcium 8.7 (8.4-10.2) mg/dL Total Bilirubin 0.5 (0.2-1.3) mg/dL AST 26 (17-59) U/L ALT 16 (4-49) U/L Alkaline Phosphatase 43 (38-126) U/L Total Protein 5.8 L (6.3-8.2) g/dL Albumin 3.4 L (3.5-5.0) g/dL Assessment and Plan Plan: 33-year-old male with likely colitis and history of ulcerative colitis status post subtotal colectomy 10 years ago. He has had significant improvement in his pain. Diarrhea has slowed down. Leukocytosis has resolved. At this point, no plan for any surgical intervention. Would recommend continued antibiotics per ID. 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
[2024-08-27 14:31] VITALS: BP 111/66; PULSE 74; TEMP 97.8
[2024-08-27] MEDS ORDERED: metroNIDAZOLE 500 MG TAB PO SCH (16:00)
[2024-08-28] MEDS ORDERED: methylPREDNISolone 4 MG TAB TAPER PO SCH (09:00)
== END 2024-08-27 15:01 | disposition home or self-care (01) ==
LOC: EC 00:38 → 6NMEDSUR 04:37 → 4SSUR 20:18
PROVIDERS: ADMIT Family Medicine; ATTEND Family Medicine
DX: K91.89 Other postprocedural complications and disorders of digestive system (principal); K52.9 Noninfective gastroenteritis and colitis, unspecified; N17.9 Acute kidney failure, unspecified; E86.0 Dehydration; Z98.0 Intestinal bypass and anastomosis status; K63.89 Other specified diseases of intestine; I95.9 Hypotension, unspecified; R61 Generalized hyperhidrosis; E86.1 Hypovolemia; K92.0 Hematemesis; Z79.899 Other long term (current) drug therapy; Z88.0 Allergy status to penicillin; Z88.5 Allergy status to narcotic agent; Z91.011 Allergy to milk products; Z98.890 Other specified postprocedural states; Z90.49 Acquired absence of other specified parts of digestive tract
CPT/HCPCS: 96376 ×2; 96361 ×3; 96366 ×2; 96365; 96367; 96375; 99285; 36415; 93005; 80053 ×2; 83605; 83690; 83735; 85025 ×2; 81003; 87324; 87045; 87046; 74177; G0378 ×3; J2270; J2765; J0696 ×2; J1171; Q9967; J1836 ×2; J2919 ×2; J2470 ×2